=== PATIENT | female | born 1960 | race Caucasian/White ===

== ENCOUNTER → 2017-09-13 12:00 | Outpatient (CLI) | payer OTHER, SELFPAY ==
[2017-09-13 13:12] LABS: Absolute Neutrophil Count 4.4 X10^3/uL (2.0-7.7); Basophil# 0.05 X10^3/uL; Basophil% 0.6 % (0-1); Eosinophil# 0.28 X10^3/uL; Eosinophils% 3.2 % (0-5); Hematocrit 41.1 % (37-47); Hemoglobin 13.7 g/dl (12.0-15.0); Lymphocyte % 36.7 % (19-41); Mean Corp Hgb Conc 33.3 g/gl (32-36); Mean Corpuscular Hgb 30.9 pg (27.0-32.0); Mean Corpuscular Volume 92.8 fL (81-99); Mean Platelet Vol. 11.1 fl (6.2-12.0); Monocyte# 0.76 X10^3/uL; Monocyte% 8.7 % (0-10); Neutrophil # 4.39 X10^3/uL (2.7-7.7); Neutrophil % 50.3 % (47-70); Platelet Count 343 K/mm3 (150-450); RBC Distribution Width CV 12.8 % (11.6-14.6); RBC Distribution Width SD 42.8 fl (35.1-43.9); Red Blood Count 4.43 M/mm3 (4.2-5.4); White Blood Count 8.7 K/mm3 (4.4-11.0)
[2017-09-13 13:19] LABS: POSITIVE COUNT NO; POSITIVE DIFFERENTIAL NO; POSITIVE MORPHOLOGY NO
[2017-09-13 13:50] LABS: AST(SGOT) 29 U/L (15-37); Alanine Aminotransfer ALT/SGPT 35 U/L (13-56); Albumin, Serum 3.9 g/dL (3.2-5.0); Alkaline Phosphatase 79 U/L (45-117); Anion Gap 9 (5-15); BUN 17 mg/dL (7-18); BUN/Creat Ratio 17.7 RATIO (10-20); Calcium,Total 9.3 mg/dL (8.5-10.1); Chloride 101 mmol/L (98-107); Creatinine, Serum 0.96 mg/dL (0.55-1.02); EST Glomerular Filtration Rate 63 mL/min (>60); Est Glom Filt Rate - Afr Amer 77 mL/min (>60); Globulin 4.1 g/dL (2.2-4.2); Glucose 83 mg/dL (74-106); Potassium 3.9 mmol/L (3.5-5.1); Sodium Level 137 mmol/L (136-145); Thyroid Stim Hormone (TSH) 3.21 uIU/mL (0.358-3.74)
[2017-09-14 10:19] LABS: Vitamin D,25 Hydroxy 62.2 ng/mL (29.95-100.01)
== END ==
PROVIDERS: Visit Provider Family Medicine Geriatric Medicine
DX: I10 Essential (primary) hypertension (principal); E55.9 Vitamin D deficiency, unspecified
CPT/HCPCS: 36415; 80053; 82306; 84443; 85025

== ENCOUNTER → 2018-03-19 11:03 | Outpatient (CLI) | payer OTHER, SELFPAY ==
[2018-03-19 12:36] LABS: Absolute Lymphocyte Count 1.81 X10^3/ul (0.83-4.51); Absolute Neutrophil Count 5.4 X10^3/uL (2.0-7.7); Basophil# 0.05 X10^3/uL; Basophil% 0.6 % (0-1); Eosinophil# 0.22 X10^3/uL; Eosinophils% 2.7 % (0-5); Hematocrit 42.3 % (37-47); Hemoglobin 14.1 g/dl (12.0-15.0); Lymphocyte # 1.81 X10^3/ul (4.0); Lymphocyte % 22.6 % (19-41); Mean Corp Hgb Conc 33.3 g/gl (32-36); Mean Corpuscular Hgb 30.9 pg (27.0-32.0); Mean Corpuscular Volume 92.6 fL (81-99); Mean Platelet Vol. 11.6 fl (6.2-12.0); Monocyte# 0.55 X10^3/uL; Monocyte% 6.9 % (0-10); Neutrophil # 5.35 X10^3/uL (2.7-7.7); Neutrophil % 66.7 % (47-70); Platelet Count 337 K/mm3 (150-450); RBC Distribution Width CV 13.2 % (11.6-14.6); RBC Distribution Width SD 43.7 fl (35.1-43.9); Red Blood Count 4.57 M/mm3 (4.2-5.4)
[2018-03-19 12:40] LABS: POSITIVE COUNT NO; POSITIVE DIFFERENTIAL NO; POSITIVE MORPHOLOGY NO
[2018-03-19 13:02] LABS: ALB/GLOB Ratio 0.9 RATIO (0.9-2.4); AST(SGOT) 23 U/L (15-37); Alanine Aminotransfer ALT/SGPT 29 U/L (13-56); Albumin, Serum 3.8 g/dL (3.2-5.0); Alkaline Phosphatase 82 U/L (45-117); Anion Gap 12 (5-15); BUN 19 mg/dL (7-18); BUN/Creat Ratio 16.1 RATIO (10-20); Calcium,Total 9.3 mg/dL (8.5-10.1); Chloride 103 mmol/L (98-107); Creatinine, Serum 1.18 mg/dL (0.55-1.02); EST Glomerular Filtration Rate 50 mL/min (>60); Est Glom Filt Rate - Afr Amer 60 mL/min (>60); Globulin 4.4 g/dL (2.2-4.2); Glucose 98 mg/dL (74-106); Potassium 4.3 mmol/L (3.5-5.1); Protein, Total 8.2 g/dL (6.4-8.2); Sodium Level 139 mmol/L (136-145); Thyroid Stim Hormone (TSH) 1.84 uIU/mL (0.358-3.74)
[2018-03-20 11:25] LABS: Hep C Antibodies <0.1 s/co ratio (0.0-0.9)
== END ==
PROVIDERS: Visit Provider Family Medicine Geriatric Medicine
DX: I10 Essential (primary) hypertension (principal); Z13.89 Encounter for screening for other disorder
CPT/HCPCS: 36415; 80053; 84443; 85025; 86803

== ENCOUNTER → 2018-07-23 12:24 | Outpatient (CLI) | payer OTHER, SELFPAY ==
[2018-07-23 09:46] VITALS: BMI 38.4
[2018-07-26 09:50] LABS: HPV APTIMA, High Risk Negative (Negative)
--- OUTSIDE RECORDS SUMMARY | 2018-09-24 16:14 | XMS RPT_ITS ---
:1960 Author Organization OHIP Care Team Providers Name Role Phone Suzy Waldron Attending Unavailable Marquis, Girish Chi Referring Unavailable Suzy Waldron Attending Unavailable Suzy Waldron Referring Unavailable Marquis, Girish Chi Primary Care Unavailable Suzy Waldron Attending Unavailable Suzy Waldron Referring Unavailable Marquis, Girish Chi Primary Care Unavailable Marquis, Girish Chi Attending Unavailable Marquis, Girish Chi Attending Unavailable PROBLEMS PROBLEMS DATE TYPE CONDITION / CODE ATTENDING STATUS SOURCE 07/23/2018 Unknown Z12.4 - Encounter Vanita, Active [place] for screening for [facility] malignant neoplasm Hospital of cervix / Repository Z12.4(ICD-10) 07/23/2018 Unknown Z01.411 - Encounter Vanita, Active [place] for gynecological [facility] (general) (routine) Repository with abnormal findings / Z01.411(ICD-10) 07/23/2018 Unknown N39.46 - Mixed Marcanthony, Active [place] incontinence / [facility] N39.46(ICD-10) Hospital Repository 07/23/2018 Unknown N81.2 - Incomplete Marcanthony, Active [place] uterovaginal [facility] prolapse / Hospital N81.2(ICD-10) Repository 07/23/2018 Unknown N95.0 - Marcanthony, Active [place] Postmenopausal [facility] bleeding / Hospital N95.0(ICD-10) Repository 05/14/2018 Unknown I10 - Essential Marquis, Girish Chi Active [place] (primary) [facility] hypertension / Hospital I10(ICD-10) Repository PROCEDURES PROCEDURES No Procedure Records FoundRESULTS RESULTS PELVIC (NON ) Observed: 07/26/2018 Status: F Source: [place] 2:12 PM [facility] REPOSITORY [facility] Imaging Services [address] [place] [address] Pelvic (Non ) MR#: [id number] Acct: [id number] Name: EDU MARRERO MIN Rep #: [id number] : 1960 F 58 From: Arthur Valentin MD PCP: Girish Salguero MD, Chi Status: REG CLI Study: Pelvic (Non ) Date of Exam: 07/26/18 Exam# [id number] Ordering Dr: Suzy Waldron MD STUDY: ULTRASOUND TRANSVAGINAL CLINICAL: Female, 58 years old. Postmenopausal bleeding TECHNIQUE: Transabdominal imaging initially performed with subsequent endovaginal imaging due to poor visualization of the endometrial complex. COMPARISON: None. FINDINGS: Normal uterine size measuring 10.0 x 4.5 x 4.9 cm in maximal craniocaudal dimension. There are no myometrial masses. Normal endometrial thickness measuring 16.4 mm. Margins of the endometrial complex are ill-defined. There are no endometrial masses, and there is no fluid in the endometrial cavity. Nabothian cysts are noted. Normal right ovary, measuring 2.1 x 2.1 x 0.8 cm. There are multiple follicles without a dominant cyst. Normal left ovary, measuring 2.0 x 2.1 x 1.1 cm. There are multiple follicles without a dominant cyst. There is no free fluid in the pelvis. Visualized urinary bladder is unremarkable. US/Pelvic (Non ) IMPRESSION: 1. Endometrial complex thickening in a postmenopausal female with bleeding. Endometrial hyperplasia versus neoplasm. Sampling is recommended. Electronically Signed: Arthur Valentin MD at 22:16 EST , Service support , CC: Suzy Waldron MD; Girish Salguero MD Gas Maker Helper: Signed TRANSVAGINAL Observed: 07/26/2018 Status: F Source: [place] NON- 2:12 PM [facility] REPOSITORY [facility] Imaging Services [address] [place] [address] Transvaginal Non- MR#: [id number] Acct: [id number] Name: EDU MARRERO MIN Rep #: [id number] : 1960 F 58 From: Arthur Valentin MD PCP: Girish Salguero MD, Chi Status: REG CLI Study: Transvaginal Non- Date of Exam: 07/26/18 Exam# [id number] Ordering Dr: Suzy Waldron MD STUDY: ULTRASOUND TRANSVAGINAL CLINICAL: Female, 58 years old. Postmenopausal bleeding TECHNIQUE: Transabdominal imaging initially performed with subsequent endovaginal imaging due to poor visualization of the endometrial complex. COMPARISON: None. FINDINGS: Normal uterine size measuring 10.0 x 4.5 x 4.9 cm in maximal craniocaudal dimension. There are no myometrial masses. Normal endometrial thickness measuring 16.4 mm. Margins of the endometrial complex are ill-defined. There are no endometrial masses, and there is no fluid in the endometrial cavity. Nabothian cysts are noted. Normal right ovary, measuring 2.1 x 2.1 x 0.8 cm. There are multiple follicles without a dominant cyst. Normal left ovary, measuring 2.0 x 2.1 x 1.1 cm. There are multiple follicles without a dominant cyst. There is no free fluid in the pelvis. Visualized urinary bladder is unremarkable. US/Transvaginal Non- IMPRESSION: 1. Endometrial complex thickening in a postmenopausal female with bleeding. Endometrial hyperplasia versus neoplasm. Sampling is recommended. Electronically Signed: Arthur Valentin MD at 22:16 EST , Service support , CC: Suzy Waldron MD; Girish Salguero MD Gas Maker Helper: Signed ELECTROTYPE CASTER OFFICE VISIT Observed: 07/23/2018 Status: F Source: [place] REPORT 10:30 AM [facility] REPOSITORY [facility] [address] [place] [address]. 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 Required: No Is patient in pain?: No Allergies No Known Allergies Allergy (Unverified 07/23/18 09:47) Medications lisinopril 10 mg tablet 10 mg PO DAILY 07/23/18 [History Confirmed 07/23/18] Is last menstrual period known: No Post menopausal: Yes Patient : No : No PFSH Medical History Anxiety (Acute) Depression (Acute) Hyperlipidemia (Acute) Hypertension (Chronic) Surgical History H/O tubal ligation (Acute) H/O: knee surgery (Acute) History of tonsillectomy (Acute) Family History Mother Diabetes Congestive heart failure Daughter Diabetes Father CVA (cerebral vascular accident) Myocardial infarction Social History Smoking Status: Never smoker alcohol intake: never substance use type: does not use caffeine: Yes what type of physical activity do you participate in: walking seatbelt use: always do you feel safe at home: Yes additional social history: Darryl- 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 DateName GA/Weeks Outcome Route Bt WeighInfant GeLabor LgtAnesthesiDel LocatProvider FOB t n h a n HPI Encounter for routine gynecological examination: Details: EDU MARRERO is a 58 year old who presents for annual exam. she has had some pink discharge. Last PAP: unsure History of abnormal PAP: yes cryo in past Last mammogram: due History of abnormal mammogram: Colon cancer screening: u ptod ate Other preventative health care screenings: sees dr salguero Female Reproductive History Questions: Metorrhagia: Yes, Sexually active: Yes, Dyspareunia: Yes, PCB: No ROS Const Constitutional: Reports as per HPI; denies poor appetite, fatigue, increased appetite, weight gain or weight loss Cardio Card: Denies chest pain Resp Resp: Denies dyspnea or cough GI GI: Reports as per HPI; denies bloating, abdominal pain, constipation, vomiting or nausea : Reports as per HPI, vaginal odor, urinary urgency, urinary incontinence, urinary frequency, other and prolapse symptoms; denies blood in urine, vaginal itching, vaginal dryness, vaginal discharge, pelvic pain, painful urination, difficulty urinating or nipple discharge Skin Skin/Breast: Denies breast pain, breast skin changes, nipple discharge, breast lump or changing lesions Exam Const General: cooperative, healthy appearing, comfortable, no acute distress, well developed, well groomed HENMT Head: normal to inspection, normocephalic Ears: hearing grossly normal bilaterally, external ears normal Nose: external nose normal Face and sinus: normal facial exam Neck Neck: normal visual inspection, full ROM, no lymphadenopathy Thyroid: thyroid normal Chest Chest palpation AND inspection: normal inspection of the chest Breast inspection: normal inspection of the breasts, normal inspection of the axillae Breast palpation: normal palpation of the breasts, normal palpation of the axillae, no axillary lymphadenopathy Resp Effort AND Inspection: normal respiratory effort GI Inspection: normal to inspection, non-distended Palpation: no guarding, soft, no hepatosplenomegaly General: bladder normal to palpation External Female Exam: normal external appearance, normal appearance of the urethra, no lesions Urethra: normal appearance of the urethra, normal palpation Speculum Exam - Vagina: normal appearance of the vagina, normal vaginal discharge Speculum Exam - Cervix: normal appearance of the cervix, no cervical discharge, no lesions, nontender Bimanual Exam- Vagina AND Uterus: No cervical tenderness, normal bimanual exam, uterine size normal, bladder normal to palpation, uterine mobility normal, uterine consistency normal, uterus non-tender, no cervical motion tenderness Bimanual Exam- Adnexa, other: normal adnexae, no adnexal masses, adnexae non-tender Skin General: no rashes or lesions noted Neuro General: alert, moves all extremities, no focal motor deficits Extrem General: no pedal edema, normal to inspection Psych Appearance: grossly normal Mental Status: mental status grossly normal Affect: normal affect Speech and Movement: speech and movement normal Attitude: cooperative Assessment AND Plan Problems 1. Encounter for gynecological examination with abnormal finding Z01.411 2. Mixed incontinence N39.46 3. Incomplete uterovaginal prolapse N81.2 4. Postmenopausal bleeding N95.0 recommend US Plan Cervical cancer screening: pap hpv Breast cancer screening: mamm recommend urogyn consult- plan TVH BSO combo case other health maintenance examination reviewed and orders placed if needed. Encouraged maintenance of a healthy weight and active lifestyle and handout given. Annual exam handout including recommendations for good health guidelines, Calcium/vitamin D recommendations, and basic screening information given. Problem list up to date, see problem list details for any additional plan information. Follow up in one year for annual health maintenance exam or sooner if needed. Orders Orders: Coding Level of Care Code Off vis,new,prev 40-64yrs Diagnoses Encounter for gynecological examination with abnormal finding Z01.411 Gynecological examination findings: abnormal findings PRESENT Mixed incontinence N39.46 Incomplete uterovaginal prolapse N81.2 Postmenopausal bleeding N95.0 07/23/18 1030 <Electronically signed by Suzy Waldron MD> Date Suzy Waldron MD Cosigner Signature: Date (if applicable) CC: PAP IG HPV APTIMA Collected: 07/23/2018 Status: F Source: [place] 16/18,45 10:00 AM [facility] REPOSITORY Order Comment: CYTOLOGY INFORMATION: - CLINICAL INFORMATION: - DATE LMP/MENOPAUSE: - COLLECTION VIAL: Thin Prep Vial - CATERING MANAGER SOURCE: CERVICAL - COLLECTION TECHNIQUE: BRUSH/SPATULA Specimen Comment: [id number] Specimen Comment: Source.............Cervix Specimen Comment: No. of containers..01 ThinPrep Vial TYPE CODE TESTS RESULT OUT OF RANGE REFERENCE UNITS LAB L7400.0800 . Normal DIAGN Comment Result Comment: NEGATIVE FOR INTRAEPITHELIAL LESION OR MALIGNANCY. LAB L7400.0900 . Normal ADEQ Comment Result Comment: Satisfactory for evaluation. Endocervical and/or squamous metaplastic cells (endocervical component) are present. LAB L7400.1400 . Normal PERFORM Comment Result Comment: Sheron Duarte, Cms Expert (ASCP) LAB L7400.2575 . Normal TEST METHOD Comment Result Comment: This liquid based ThinPrep(R) pap test was screened with the use of an image guided system. LAB L7400.2600 . Normal . COMM LAB L7400.2700 . Normal PAPSMR Comment Result Comment: The Pap smear is a screening test designed to aid in the detection of premalignant and malignant conditions of the uterine cervix. It is not a diagnostic procedure and should not be used as the sole means of detecting cervical cancer. Both false-positive and false-negative reports do occur. LAB L7400.2760 Negative Normal HPV APTIMA, Negative HR Result Comment: This test detects fourteen high-risk HPV types (16/18/31/33/35/39/45/ 51/52/56/58/59/66/68) without differentiation. Performed at: [facility] - [facility] [address] [id number] Therapeutic Consultant: Mary Wiley MD, Phone: [phone] Performed at: =G - [facility] [address], [place] [id number] Therapeutic Consultant: Mary Wiley MD, Phone: [phone] Performed By: #### L7400.0280 #### [facility] (refer to report for specific site) refer to report for address and phone number CBC W/DIFF, AUTOMATED Collected: 03/19/2018 Status: F Source: [place] 11:04 AM [facility] REPOSITORY TYPE CODE TESTS RESULT OUT OF RANGE REFERENCE UNITS LAB L100.1000 4.4-11.0 K/mm3 Normal WBC 8.0 LAB L100.1200 4.2-5.4 M/mm3 Normal RBC 4.57 LAB L100.1300 12.0-15.0 g/dl Normal HGB 14.1 LAB L100.1400 37-47 % Normal HCT 42.3 LAB L100.1500 81-99 fL Normal MCV 92.6 LAB L100.1600 27.0-32.0 pg Normal MCH 30.9 LAB L100.1700 32-36 g/gl Normal MCHC 33.3 LAB L100.1810 11.6-14.6 % Normal RDW CV 13.2 LAB L100.1820 35.1-43.9 fl Normal RDW SD 43.7 LAB L100.1900 150-450 K/mm3 Normal PLT 337 LAB L100.2000 6.2-12.0 fl Normal MPV 11.6 LAB L100.2100 47-70 % Normal NEUT% 66.7 LAB L100.2200 19-41 % Normal LY% 22.6 LAB L100.2300 0-10 % Normal MONO% 6.9 LAB L100.2400 0-5 % Normal EO% 2.7 LAB L100.2500 0-1 % Normal BASO% 0.6 LAB L100.2550 0.0-0.9 % Normal IM GRAN % 0.500 Result Comment: IG% - Immature Granulocytes (promyelocytes, myelocytes and metamyelocytes) > 1% indicates that a LEFT SHIFT is Present. LAB L100.2620 2.0-7.7 X10 3/uL Normal Absolute Neut 5.4 LAB L100.2720 0.83-4.51 X10 3/ul Normal Absolute Lymph 1.81 Performed By: #### L100.0100 #### [facility] [address] [place], [address] COMPREHENSIVE METABOLIC Collected: 03/19/2018 Status: F Source: [facility] 11:04 AM [facility] REPOSITORY TYPE CODE TESTS RESULT OUT OF RANGE REFERENCE UNITS LAB L501.0100 74-106 mg/dL Normal GLU 98 Result Comment: Please note revised GLUCOSE reference range effective 2017. LAB L501.1000 7-18 mg/dL High BUN 19 LAB L501.1100 0.55-1.02 mg/dL High CREAT,SERUM 1.18 Result Comment: The validity of the calculated GFR AND GFRAA in patients over 70 years has not been determined. Clinical correlation is essential. LAB L501.1110 >60 mL/min Low EST GFR 50 Result Comment: Non- GFR Calc LAB L501.1115 >60 mL/min Normal EST GFR - AA 60 Result Comment: GFR Calc LAB L501.1300 10-20 RATIO Normal BUN/CRE 16.1 LAB L501.1500 6.4-8.2 g/dL T Normal PROT 8.2 LAB L501.1800 3.2-5.0 g/dL Normal ALB 3.8 LAB L501.1950 2.2-4.2 g/dL High GLOB 4.4 LAB L501.2000 0.9-2.4 RATIO Normal A/G 0.9 LAB L501.2200 8.5-10.1 mg/dL CA Normal 9.3 LAB L501.4100 15-37 U/L Normal AST 23 LAB L501.4305 45-117 U/L Normal ALK P 82 LAB L501.4405 13-56 U/L Normal ALT 29 LAB L501.4600 0.20-1.00 mg/dL T Normal BILI 0.60 LAB L501.5300 136-145 mmol/L NA Normal 139 LAB L501.5600 3.5-5.1 mmol/L K Normal 4.3 LAB L501.5900 98-107 mmol/L CL Normal 103 LAB L501.6100 21.0-32.0 mmol/L Normal CO2 24.0 LAB L501.6200 5-15 Normal GAP 12 Performed By: #### L500.4050, L501.9520 #### [facility] [address] [place], [address] THYROID STIM HORMONE Collected: 03/19/2018 Status: F Source: [place] (TSH) 11:04 AM [facility] REPOSITORY TYPE CODE TESTS RESULT OUT OF RANGE REFERENCE UNITS LAB L501.9520 0.358-3.74 uIU/mL Normal TSH 1.84 Performed By: #### L500.4050, L501.9520 #### [facility] [address] [place], [address] HEPATITIS C ANTIBODIES Collected: 03/19/2018 Status: F Source: [place] 11:04 AM [facility] REPOSITORY TYPE CODE TESTS RESULT OUT OF RANGE REFERENCE UNITS LAB L3100.0650 0.0-0.9 s/co ratio Normal HEP C AB <0.1 Result Comment: Negative: < 0.8 Indeterminate: 0.8 - 0.9 Positive: > 0.9 The CDC recommends that a positive HCV antibody result be followed up with a HCV Nucleic Acid Amplification test ([id number]). Performed at: [facility] [id number] Therapeutic Consultant: Nino Hernandez PhD, Phone: [phone] Performed By: #### L3100.0625 #### [facility] (refer to report for specific site) refer to report for address and phone number VITAMIN D,25 HYDROXY Collected: 09/13/2017 Status: F Source: [place] 12:16 PM [facility] REPOSITORY Order Comment: DR SALGUERO ADDED VITD TYPE CODE TESTS RESULT OUT OF RANGE REFERENCE UNITS LAB L506.1000 29.95-100.01 ng/mL Normal Vitamin D 62.2 25-OH Result Comment: Vitamin D 25(OH) Status Range Deficiency <20 ng/mL (50nmol/L) Insuffciency 20 - 30 ng/mL (50 - 75 nmol/L) Sufficiency 30 - 100 ng/mL (75 - 250 nmol/L) Toxicity >100 ng/mL (>250 nmol/L) Performed By: #### L506.1000 #### [facility] [address] [place], [address] CBC W/DIFF, AUTOMATED Collected: 09/13/2017 Status: F Source: [place] 12:03 PM [facility] REPOSITORY TYPE CODE TESTS RESULT OUT OF RANGE REFERENCE UNITS LAB L100.1000 4.4-11.0 K/mm3 Normal WBC 8.7 LAB L100.1200 4.2-5.4 M/mm3 Normal RBC 4.43 LAB L100.1300 12.0-15.0 g/dl Normal HGB 13.7 LAB L100.1400 37-47 % Normal HCT 41.1 LAB L100.1500 81-99 fL Normal MCV 92.8 LAB L100.1600 27.0-32.0 pg Normal MCH 30.9 LAB L100.1700 32-36 g/gl Normal MCHC 33.3 LAB L100.1810 11.6-14.6 % Normal RDW CV 12.8 LAB L100.1820 35.1-43.9 fl Normal RDW SD 42.8 LAB L100.1900 150-450 K/mm3 Normal PLT 343 LAB L100.2000 6.2-12.0 fl Normal MPV 11.1 LAB L100.2100 47-70 % Normal NEUT% 50.3 LAB L100.2200 19-41 % Normal LY% 36.7 LAB L100.2300 0-10 % Normal MONO% 8.7 LAB L100.2400 0-5 % Normal EO% 3.2 LAB L100.2500 0-1 % Normal BASO% 0.6 LAB L100.2550 0.0-0.9 % Normal IM GRAN % 0.500 Result Comment: IG% - Immature Granulocytes (promyelocytes, myelocytes and metamyelocytes) > 1% indicates that a LEFT SHIFT is Present. LAB L100.2620 2.0-7.7 X10 3/uL Normal Absolute Neut 4.4 LAB L100.2720 0.83-4.51 X10 3/ul Normal Absolute Lymph 3.20 Performed By: #### L100.0100 #### [facility] [place], [address] COMPREHENSIVE METABOLIC Collected: 09/13/2017 Status: F Source: [place] [facility] 12:03 PM [facility] REPOSITORY TYPE CODE TESTS RESULT OUT OF RANGE REFERENCE UNITS LAB L501.0100 74-106 mg/dL Normal GLU 83 Result Comment: Please note revised GLUCOSE reference range effective 2017. LAB L501.1000 7-18 mg/dL Normal BUN 17 LAB L501.1100 0.55-1.02 mg/dL Normal CREAT,SERUM 0.96 Result Comment: The validity of the calculated GFR AND GFRAA in patients over 70 years has not been determined. Clinical correlation is essential. LAB L501.1110 >60 mL/min Normal EST GFR 63 Result Comment: Non- GFR Calc LAB L501.1115 >60 mL/min Normal EST GFR - AA 77 Result Comment: GFR Calc LAB L501.1300 10-20 RATIO Normal BUN/CRE 17.7 LAB L501.1500 6.4-8.2 g/dL T Normal PROT 8.0 LAB L501.1800 3.2-5.0 g/dL Normal ALB 3.9 LAB L501.1950 2.2-4.2 g/dL Normal GLOB 4.1 LAB L501.2000 0.9-2.4 RATIO Normal A/G 1.0 LAB L501.2200 8.5-10.1 mg/dL CA Normal 9.3 LAB L501.4100 15-37 U/L Normal AST 29 LAB L501.4305 45-117 U/L Normal ALK P 79 LAB L501.4405 13-56 U/L Normal ALT 35 Result Comment: Please note revised ALT reference range effective 2017. LAB L501.4600 0.20-1.00 mg/dL Normal T BILI 0.30 LAB L501.5300 136-145 mmol/L Normal NA 137 LAB L501.5600 3.5-5.1 mmol/L Normal K 3.9 LAB L501.5900 98-107 mmol/L Normal CL 101 LAB L501.6100 21.0-32.0 mmol/L Normal CO2 27.0 LAB L501.6200 5-15 Normal GAP 9 Performed By: #### L500.4050, L501.9520 #### [facility] [address] [place], [address] THYROID STIM HORMONE Collected: 09/13/2017 Status: F Source: [place] (TSH) 12:03 PM [facility] REPOSITORY TYPE CODE TESTS RESULT OUT OF RANGE REFERENCE UNITS LAB L501.9520 0.358-3.74 uIU/mL Normal TSH 3.21 Performed By: #### L500.4050, L501.9520 #### [facility] [address] [place], [address] ALLERGIES ALLERGIES DATE TYPE / CODE NAME / CODE REACTION SEVERITY SOURCE 07/23/2018 Drug No Known Unknown [facility] Allergy/4160 Allergies/F00 Hospital 68770(SNOMED [id number](RXNOR Repository CT) M) ENCOUNTERS ENCOUNTERS ADMIT/DISCHARGE ACCOUNT ADMITTING ENCOUNTER LOCATION SOURCE NUMBER CLASS 07/26/2018 [id number] Ambulatory [place] 3 [facility] ing:US Repository 07/23/2018 [id number] Ambulatory [place] 1 [facility] ing:LABSPEC Repository 07/23/2018/ [id number] Ambulatory BMSBuilding:B [place] 9 7 [facility] Repository 03/19/2018 [id number] Ambulatory [place] 8 [facility] ing:POLAB3 Repository 09/13/2017 [id number] Ambulatory [place] 5 [facility] ing:POLAB3 Repository PAYERS PAYERS ENCOUNTER GUARANTOR PAYER SUBSCRIBER SOURCE 07/26/2018 EDU Ferrer [place] [id number] Insurance:GIANNA DeleonOB: [facility] [id number] Number: Repository [id number]: (001) [id number] [phone] () Date:[id number] [address]SM: 07/26/2018 Secondary NOT GIVENUNK [place] Insurance:SELF PAY [facility] Number: Effective Repository Date:2018-07-23 07/23/2018 EDU Andrews N [place] [id number] Insurance:PHILIDELPHI CleaverDOB: [facility] [id number] Number: Repository [address]Zdr: 330 [id number] [phone] (HP) Date:7075-70-40BT [address] [address]NN: 07/23/2018 Secondary NOT GIVENUNK [place] Insurance:SELF PAY [facility] Number: Effective Repository Date:2018-07-23 07/23/2018 EDU Andrews N [place] [id number] Insurance:PHILIDELPHI CleaverDOB: [facility] [id number] Number: Repository [address]Yhb: [phone] [id number] [phone] () Date:2829-72-52ZX [address] [address]FS: 07/23/2018 Secondary NOT GIVENUNK [place] Insurance:SELF PAY [facility] Number: Effective Repository Date:2018-07-23 03/19/2018 EDU Ferrer [place] [id number] Insurance:PHILADELPHI CleaverDOB: [facility] [id number] Number: Repository [id number]: [phone] [id number] [phone] (HP) Date:3440-08-55CT [address] [address]CH: 03/19/2018 Secondary NOT GIVENUNK [place] Insurance:SELF PAY [facility] Number: Effective Repository Date:2018-03-19 09/13/2017 EDU Andrews N [place] [id number] Insurance:PHILADELPHI CleaverDOB: [facility] [id number] Number: Repository [id number]: [phone]) [id number] [phone] () Date:[id number] [address]KN: 09/13/2017 Secondary NOT GIVENUNK [place] Insurance:SELF PAY [facility] Number: Effective Repository Date:2017-09-13
== END ==
PROVIDERS: Family Provider Family Medicine Geriatric Medicine; PCP Family Medicine Geriatric Medicine; Referring Provider Obstetrics & Gynecology; Visit Provider Obstetrics & Gynecology
DX: Z12.4 Encounter for screening for malignant neoplasm of cervix (principal)
CPT/HCPCS: 87624; 88175; G0145

== ENCOUNTER → 2018-07-26 14:07 | Outpatient (CLI) | payer OTHER, SELFPAY ==
[2018-07-23 09:46] VITALS: BMI 38.4
--- NOTE | 2018-07-26 14:12 | US_ITS ---
STUDY: ULTRASOUND TRANSVAGINAL CLINICAL: Female, 58 years old. Postmenopausal bleeding TECHNIQUE: Transabdominal imaging initially performed with subsequent endovaginal imaging due to poor visualization of the endometrial complex. COMPARISON: None. FINDINGS: Normal uterine size measuring 10.0 x 4.5 x 4.9 cm in maximal craniocaudal dimension. There are no myometrial masses. Normal endometrial thickness measuring 16.4 mm. Margins of the endometrial complex are ill-defined. There are no endometrial masses, and there is no fluid in the endometrial cavity. Nabothian cysts are noted. Normal right ovary, measuring 2.1 x 2.1 x 0.8 cm. There are multiple follicles without a dominant cyst. Normal left ovary, measuring 2.0 x 2.1 x 1.1 cm. There are multiple follicles without a dominant cyst. There is no free fluid in the pelvis. Visualized urinary bladder is unremarkable. US/Transvaginal Non- IMPRESSION: 1. Endometrial complex thickening in a postmenopausal female with bleeding. Endometrial hyperplasia versus neoplasm. Sampling is recommended. Electronically Signed: Arthur Valentin MD at 22:16 EST , Service support ,
--- NOTE | 2018-07-26 14:12 | US_ITS ---
STUDY: ULTRASOUND TRANSVAGINAL CLINICAL: Female, 58 years old. Postmenopausal bleeding TECHNIQUE: Transabdominal imaging initially performed with subsequent endovaginal imaging due to poor visualization of the endometrial complex. COMPARISON: None. FINDINGS: Normal uterine size measuring 10.0 x 4.5 x 4.9 cm in maximal craniocaudal dimension. There are no myometrial masses. Normal endometrial thickness measuring 16.4 mm. Margins of the endometrial complex are ill-defined. There are no endometrial masses, and there is no fluid in the endometrial cavity. Nabothian cysts are noted. Normal right ovary, measuring 2.1 x 2.1 x 0.8 cm. There are multiple follicles without a dominant cyst. Normal left ovary, measuring 2.0 x 2.1 x 1.1 cm. There are multiple follicles without a dominant cyst. There is no free fluid in the pelvis. Visualized urinary bladder is unremarkable. US/Pelvic (Non ) IMPRESSION: 1. Endometrial complex thickening in a postmenopausal female with bleeding. Endometrial hyperplasia versus neoplasm. Sampling is recommended. Electronically Signed: Arthur Valentin MD at 22:16 EST , Service support ,
== END ==
LOC: US 14:10
PROVIDERS: Family Provider Family Medicine Geriatric Medicine; PCP Family Medicine Geriatric Medicine; Referring Provider Obstetrics & Gynecology; Visit Provider Obstetrics & Gynecology
DX: N95.0 Postmenopausal bleeding (principal)
CPT/HCPCS: 76830; 76856; 93976

== ENCOUNTER 2018-08-15 07:26 | Day surgery (SDC) | payer OTHER, SELFPAY ==
[2018-07-23 09:46] VITALS: BMI 38.4
--- NOTE | 2018-08-15 06:16 | PCM.HP.STD ---
Problem List (1) Incomplete uterovaginal prolapse Status: Acute (2) Mixed incontinence Status: Acute (3) Postmenopausal bleeding Status: Acute Comment: recommend US History of Present Illness Date of Admission: 08/15/18 Chief Complaint: postmenopausal bleeding The patient is a 58 year old F who presents for postmenopausal bleeding with thickened lining on ultrasound. Past Medical History Medical History: Medical History (Last Updated 07/23/18 @ 10:07 by Suzy Waldron MD) Anxiety F41.9 Depression F32.9 Hyperlipidemia E78.5 Hypertension I10 Allergies No Known Allergies Allergy (Verified 08/08/18 08:55) Home Medications: Ambulatory Orders Medication Instructions Recorded Cholecalciferol (Vitamin D3) 5,000 unit PO DAILY 08/08/18 [Vitamin D3] Lisinopril/Hydrochlorothiazide 1 each PO DAILY 08/08/18 [Lisinopril-Hctz 10-12.5 mg Tab] Naltrexone HCl/Bupropion HCl 1 each PO 4X/DAY 08/08/18 [Contrave ER 8-90 mg Tablet] Paroxetine [Paxil] 20 mg PO DAILY 08/08/18 Pravastatin [Pravachol] 40 mg PO QHS 08/08/18 Surgical History: Surgical History (Last Updated 07/23/18 @ 09:50 by Tram Small) H/O tubal ligation Z98.51 H/O: knee surgery Z98.890 History of tonsillectomy Z90.89 Smoking Status: Never smoker Review of Systems Constitutional: Denies: Fever, Malaise Eyes: Denies: Blurred vision, Vision Change HEENT: Denies: Head Aches, Visual Changes Cardiovascular: Denies: Chest Pain, Palpitations Respiratory: Denies: Cough, Shortness of Breath, Wheezing Gastrointestinal: Denies: Abdominal Pain, Diarrhea, Nausea, Vomiting Genitourinary: Denies: Dysuria, Hematuria Musculoskeletal: Denies: Joint Pain, Muscle pain Skin: Denies: Lesions, Rash Neurological: Denies: Blurred vision, Focal weakness, Headaches Psychiatric: Denies: Anxiety, Depression Endocrine: Denies: Heat/ Cold Intolerance Hematologic/ Lymphatic: Denies: Easy Bruising, Easy Bleeding VTE Information - Inpt Only VTE Present on Admission: No - Physical Exam General: Alert, Oriented x3 HEENT: Normocephalic Neck: Trachea Midline Lungs: Normal air movement Cardiovascular: Regular rate Abdomen: Soft, Non Tender Body Mass Index (BMI) 38.4 Assessment/Plan All Active Problems (Last Updated 07/23/18 @ 10:07 by Suzy Waldron MD) Mixed incontinence (Acute) Incomplete uterovaginal prolapse (Acute) Postmenopausal bleeding (Acute) 58 yo with postmenopausal bleeding plan d and c hysteroscopy symphion. discussed surgical risks including risks of anesthesia, infection, bleeding, injury to bowel, bladder or blood vessels, and patient wishes to proceed with surgery. UPDATE- I have seen the patient and performed any clinically relevant updates to the history and physical exam. Suzy Waldron MD
[2018-08-15 07:58] VITALS: BP 131/80; PULSE 72; RESP 16; TEMP 36.6; O2SAT 93; BMI 37.8
[2018-08-15 08:18] LABS: Hematocrit 43.5 % (37-47); Hemoglobin 13.9 g/dl (12.0-15.0); Mean Corpuscular Hgb 29.4 pg (27.0-32.0); Mean Corpuscular Volume 92.2 fL (81-99); Mean Platelet Vol. 10.8 fl (6.2-12.0); Platelet Count 323 K/mm3 (150-450); RBC Distribution Width CV 13.1 % (11.6-14.6); RBC Distribution Width SD 43.9 fl (35.1-43.9); Red Blood Count 4.72 M/mm3 (4.2-5.4); White Blood Count 6.9 K/mm3 (4.4-11.0)
[2018-08-15 08:19] LABS: Scan Indicated on CBC? Y/N NO
--- NOTE | 2018-08-15 09:00 | EMB_PTH ---
PATIENT: EDU MARRERO LOC: [facility] U#:[id number] AGE/SX: 58/F ROOM: RE08/15/[address]: Dr. Suzy Waldron MD : 1960 BED: DIS: 08/15/2018 SPEC #: [id number] RECD: 08/15/18 10:43 STATUS: STANTON DWAYNE #: [id number] MIKE: 08/15/18 09:[address]: Suzy Waldron DEPT: SURGICAL PATHOLOGY RECD BY: Graham Armijo ENTERED: 08/15/18 13:31 SP TYPE: ENDOM BX/C OTHR DR: Dr. Girish Cho MD Tissues: Endometrium, NOS Procedures: Surgery Specimen Level IV HEADER OPERATION: Hysteroscopy, D & C, Symphion PRE-OP DIAGNOSIS: Postmenopausal bleeding, mixed incontinence status, incomplete uterovaginal prolapse TISSUE SUBMITTED: Endometrial curettings and polyp MICROSCOPIC DIAGNOSIS Endometrial polyp and curettings: Polypoid fragments of endometrium with simple hyperplasia without atypia. Mild chronic endometritis. AM:marlena 08/16/18 MICROSCOPIC DESCRIPTION Slides are reviewed. GROSS DESCRIPTION Received in fixative is one container labeled with the patient's name and designated endometrial curettings and polyp. The specimen consists of multiple irregular fragments of olsen-pink soft tissue that in aggregate measure 5 x 3 x 0.6 cm. The entire specimen is submitted in four cassettes. / SJ:marlena 08/15/18 TC:1 CPT: 02912
--- NOTE | 2018-08-15 09:42 | PCM.OPRPT ---
Problem List (1) Incomplete uterovaginal prolapse Status: Acute (2) Mixed incontinence Status: Acute (3) Postmenopausal bleeding Status: Acute Comment: recommend US Report of Operation Date of Procedure: 08/15/18 Pre-Operative Diagnosis: pmb Post-Operative Diagnosis: same Surgery/Procedure Performed:: d and c hysteroscopic resection of polyp and direct d and c Description of Surgical Findings:: large endometrial polyp Type of Anesthesia:: Local MAC Special Medications: none Specimen's removed: emc polyp Drains: mares Estimated Blood Loss (mL): minimal Fluids Replaced: crystalloid Description of Procedure: Patient was prepped and draped in a normal sterile fashion under MAC anesthesia. A weighted speculum was placed in the vagina and the anterior lip of the cervix was grasped with a single-tooth tenaculum. A paracervical block was placed with 1% lidocaine. Cervix was progressively dilated to allow passage of a 5 mm hysteroscope. The lining was fully visualized and noted to have a large endometrial polyp filling the entire cavity was attached to the fundus. Uterine sounded to 10 cm. Using the symphion device, the polyp was progressively removed without complications. Direct visual curettage was performed using the device , and all specimens were sent to pathology. All instruments were removed from the vagina and excellent hemostasis was noted. Patient was awoken and taken to recovery in stable condition. Grafts/Implants Used: none - Complications none
[2018-08-15 09:43] VITALS: BP 120/73; BP 131/80; PULSE 59; RESP 16; TEMP 36.5; O2SAT 95
[2018-08-15 09:45] VITALS: BP 131/80; BP 139/86; PULSE 65; RESP 16; O2SAT 95
--- NOTE | 2018-08-15 09:46 | DCINST_ITS ---
Discharge Diet: No Restrictions Discharge Activity: Return to Normal Activity, May Shower, May Take a Tub Bath Allergies/Adverse Reactions: Allergies No Known Allergies Allergy (Verified 08/08/18 08:55) Medications to take at Discharge Cholecalciferol (Vitamin D3) [Vitamin D3] 5,000 unit PO DAILY 08/08/18 Lisinopril/Hydrochlorothiazide [Lisinopril-Hctz 10-12.5 mg Tab] 1 each PO DAILY 08/08/18 Naltrexone HCl/Bupropion HCl [Contrave ER 8-90 mg Tablet] 1 each PO 4X/DAY 08/08/18 Paroxetine [Paxil] 20 mg PO DAILY 08/08/18 Pravastatin [Pravachol] 40 mg PO QHS 08/08/18 Primary Care Physician: Girish Cho Chi, MD [Primary Care Provider] - Test Results: Test results from this visit will be discussed in further detail at your follow- up appointment, if applicable. Please Follow Up With: Suzy Waldron MD - [phone]
[2018-08-15 09:55] VITALS: BP 131/80; BP 134/73; PULSE 56; RESP 16; O2SAT 95
[2018-08-15 09:58] VITALS: BP 122/82; BP 131/80; PULSE 62; RESP 16; TEMP 36.7; O2SAT 94
[2018-08-15 10:32] VITALS: BP 131/80
== END 2018-08-15 10:41 | disposition home or self-care (01) ==
LOC: SDC 07:27 → AC 07:28
PROVIDERS: Family Provider Family Medicine Geriatric Medicine; PCP Family Medicine Geriatric Medicine; Referring Provider Obstetrics & Gynecology; Visit Provider Obstetrics & Gynecology
PROC: 0UB98ZZ Excision of Uterus, Via Natural or Artificial Opening Endoscopic (ICD-10-PCS; CPT 58558; principal; 2018-08-15 08:45)
DX: N84.0 Polyp of corpus uteri (principal); N85.01 Benign endometrial hyperplasia; N71.1 Chronic inflammatory disease of uterus; N95.0 Postmenopausal bleeding; N81.2 Incomplete uterovaginal prolapse; N39.46 Mixed incontinence; I10 Essential (primary) hypertension; E78.5 Hyperlipidemia, unspecified; F32.9 Major depressive disorder, single episode, unspecified; F41.9 Anxiety disorder, unspecified; Z79.899 Other long term (current) drug therapy
CPT/HCPCS: 58558; 36415; 85027; 86850; 86900; 88305; J7120; J2405

== ENCOUNTER → 2018-11-11 13:55 | Outpatient (CLI) | payer OTHER, SELFPAY ==
[2018-09-03 09:26] VITALS: BMI 37.8
[2018-11-11 14:57] LABS: Absolute Lymphocyte Count 3.06 X10^3/ul (0.83-4.51); Basophil# 0.08 X10^3/uL; Basophil% 0.8 % (0-1); Eosinophil# 0.65 X10^3/uL; Eosinophils% 6.2 % (0-5); Hematocrit 43.7 % (37-47); Hemoglobin 14.4 g/dl (12.0-15.0); Lymphocyte # 3.06 X10^3/ul (4.0); Mean Corpuscular Hgb 30.3 pg (27.0-32.0); Mean Corpuscular Volume 91.8 fL (81-99); Mean Platelet Vol. 11.1 fl (6.2-12.0); Monocyte# 0.73 X10^3/uL; Monocyte% 6.9 % (0-10); Neutrophil # 5.97 X10^3/uL (2.7-7.7); Neutrophil % 56.4 % (47-70); Platelet Count 363 K/mm3 (150-450); RBC Distribution Width CV 13.4 % (11.6-14.6); RBC Distribution Width SD 44.9 fl (35.1-43.9); Red Blood Count 4.76 M/mm3 (4.2-5.4); White Blood Count 10.6 K/mm3 (4.4-11.0)
[2018-11-11 14:58] LABS: POSITIVE COUNT NO; POSITIVE DIFFERENTIAL NO; POSITIVE MORPHOLOGY NO
[2018-11-11 15:16] LABS: ALB/GLOB Ratio 0.9 RATIO (0.9-2.4); AST(SGOT) 20 U/L (15-37); Alanine Aminotransfer ALT/SGPT 28 U/L (13-56); Albumin, Serum 3.7 g/dL (3.2-5.0); Alkaline Phosphatase 87 U/L (45-117); Anion Gap 6 (5-15); BUN 16 mg/dL (7-18); BUN/Creat Ratio 15.5 RATIO (10-20); Calcium,Total 8.8 mg/dL (8.5-10.1); Chloride 104 mmol/L (98-107); Creatinine, Serum 1.03 mg/dL (0.55-1.02); EST Glomerular Filtration Rate 58 mL/min (>60); Est Glom Filt Rate - Afr Amer 70 mL/min (>60); Globulin 4.1 g/dL (2.2-4.2); Glucose 132 mg/dL (74-106); Potassium 3.9 mmol/L (3.5-5.1); Protein, Total 7.8 g/dL (6.4-8.2); Sodium Level 136 mmol/L (136-145); Thyroid Stim Hormone (TSH) 3.69 uIU/mL (0.358-3.74)
== END ==
PROVIDERS: Family Provider Family Medicine Geriatric Medicine; PCP Family Medicine Geriatric Medicine; Visit Provider Family Medicine Geriatric Medicine
DX: I10 Essential (primary) hypertension (principal)
CPT/HCPCS: 36415; 80053; 84443; 85025

== ENCOUNTER → 2018-12-26 12:20 | Outpatient (CLI) | payer OTHER, SELFPAY ==
[2018-12-23 13:51] VITALS: BMI 37.8
[2018-12-26 13:01] LABS: Prothrombin Time (Protime)PT. 12.5 SECONDS (11.7-14.9)
[2018-12-26 13:02] LABS: Absolute Lymphocyte Count 3.44 X10^3/ul (0.83-4.51); Absolute Neutrophil Count 5.4 X10^3/uL (2.0-7.7); Basophil# 0.06 X10^3/uL; Basophil% 0.6 % (0-1); Eosinophil# 0.35 X10^3/uL; Eosinophils% 3.5 % (0-5); Hematocrit 41.9 % (37-47); Hemoglobin 13.9 g/dl (12.0-15.0); Lymphocyte # 3.44 X10^3/ul (4.0); Lymphocyte % 34.1 % (19-41); Mean Corp Hgb Conc 33.2 g/gl (32-36); Mean Corpuscular Hgb 30.3 pg (27.0-32.0); Mean Corpuscular Volume 91.5 fL (81-99); Mean Platelet Vol. 10.6 fl (6.2-12.0); Monocyte% 7.9 % (0-10); Neutrophil # 5.39 X10^3/uL (2.7-7.7); Neutrophil % 53.5 % (47-70); POSITIVE COUNT NO; POSITIVE DIFFERENTIAL NO; POSITIVE MORPHOLOGY NO; Platelet Count 320 K/mm3 (150-450); RBC Distribution Width CV 13.4 % (11.6-14.6); RBC Distribution Width SD 44.7 fl (35.1-43.9); Red Blood Count 4.58 M/mm3 (4.2-5.4); White Blood Count 10.1 K/mm3 (4.4-11.0)
[2018-12-26 13:09] LABS: Anion Gap 5 (5-15); BUN 15 mg/dL (7-18); Calcium,Total 9.5 mg/dL (8.5-10.1); Chloride 106 mmol/L (98-107); Creatinine, Serum 0.94 mg/dL (0.55-1.02); EST Glomerular Filtration Rate 64 mL/min (>60); Est Glom Filt Rate - Afr Amer 78 mL/min (>60); Glucose 78 mg/dL (74-106); Potassium 3.7 mmol/L (3.5-5.1); Sodium Level 137 mmol/L (136-145)
== END ==
PROVIDERS: Family Provider Family Medicine Geriatric Medicine; PCP Family Medicine Geriatric Medicine; Visit Provider Family Medicine Geriatric Medicine
DX: Z01.818 Encounter for other preprocedural examination (principal)
CPT/HCPCS: 36415; 80048; 85025; 85610

== ENCOUNTER 2019-01-09 05:38 | Day surgery (SDC) | payer OTHER, SELFPAY ==
[2018-09-03 09:26] VITALS: BMI 37.8
[2018-12-23 13:51] VITALS: BMI 37.8
--- NOTE | 2019-01-01 03:10 | HP.PCM_ITS ---
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 Is patient in pain?: No Allergies No Known Allergies Allergy (Verified 12/23/18 13:51) Medications Cholecalciferol (Vitamin D3) [Vitamin D3] 5,000 unit PO DAILY 08/08/18 [History Confirmed 12/23/18] Lisinopril/Hydrochlorothiazide [Lisinopril-Hctz 10-12.5 mg Tab] 1 ea PO DAILY 0 08/08/18 [History Confirmed 12/23/18] Naltrexone HCl/Bupropion HCl [Contrave ER 8-90 mg Tablet] 1 ea PO 4X/DAY 08/08/18 [History Confirmed 12/23/18] Paroxetine [Paxil] 20 mg PO DAILY 08/08/18 [History Confirmed 12/23/18] Pravastatin [Pravachol] 40 mg PO QHS 08/08/18 [History Confirmed 09/03/18] Is last menstrual period known: No Post menopausal: Yes Patient : No : No [facility] Medical History Anxiety (Acute) Depression (Acute) Hyperlipidemia (Acute) Hypertension (Chronic) Surgical History H/O tubal ligation (Acute) H/O: knee surgery (Acute) History of tonsillectomy (Acute) Family History Mother Diabetes Congestive heart failure Daughter Diabetes Father CVA (cerebral vascular accident) Myocardial infarction Social History (Updated 12/23/18 @ 14:03 by Suzy Waldron MD) Smoking Status: Never smoker alcohol intake: never substance use type: does not use caffeine: Yes what type of physical activity do you participate in: walking seatbelt use: always do you feel safe at home: Yes additional social history: Darryl- 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 she has pel crys organ prolapse and is going to have a combo case with urogyn for pelvic floor reconstruction. Pregancy History 6 Elective abortions Hx Para 6 Spontaneous abortions Hx # Term Pregnancies Ectopic pregnancies Hx # Pregnancies Multiple births # of living children Past Pregnancies Del. Date Name GA/Weeks Outcome Route Bth Weight Infant Gen Labor Lgth Anesthesia Del Locatn Provider FOB Unknown 1977 Prudence Unknown 1978 Jairo Unknown 1980 Ananda Unknown 1981 Shannon Unknown 1994 Sheron Unknown 1995 Antonio ROS Const Constitutional: Denies fatigue, fever(s), headache(s), increased appetite, poor appetite, weight gain or weight loss Cardio Card: Denies chest pain Resp Resp: Denies cough or dyspnea GI GI: Reports as per HPI; denies abdominal pain, constipation, nausea or vomiting : prolapse symptoms and urinary urgency frequency and loss of urine; Skin Skin/Breast: Denies change in hair, breast lump, breast pain, breast skin changes or nipple discharge Exam Const General: cooperative, healthy appearing, comfortable, no acute distress, well developed Nutritional Appearance: average body habitus Orientation: alert HENMT Head: normal to inspection, normocephalic Neck Neck: normal visual inspection, trachea midline Thyroid: thyroid normal Resp Effort & Inspection: normal respiratory effort CTAB, RRR GI Inspection: normal to inspection, non-distended Palpation: soft, no hepatosplenomegaly Skin General: no rashes or lesions noted Assessment & Plan Problems 1. Endometrial hyperplasia without atypia, simple N85.01 TVH BSO 2. Mixed incontinence N39.46 combo cases with Frankie 3. Incomplete uterovaginal prolapse N81.2 Plan discussed surgery- plan tvh bso combo case. discussed surgical risks including risks of anesthesia, infection, bleeding, injury to bowel, bladder or blood vessels, and patient wishes to proceed with surgery. Coding Level of Care Code No Charge Diagnoses Endometrial hyperplasia without atypia, simple N85.01 Mixed incontinence N39.46 Incomplete uterovaginal prolapse N81.2 UPDATE- I have seen the patient and performed any clinically relevant updates to the history and physical exam. Suzy Waldron MD
[2019-01-09] VITALS (14 sets, daily range): BP systolic 93–137; BP diastolic 51–73; PULSE 67–85; RESP 14–18; TEMP 36.2–36.8; O2SAT 94–100; BMI 39.2
[2019-01-09] MEDS: Enoxaparin 40 MG/0.4 ML Syringe SC (06:17)
[2019-01-09] MEDS: Gabapentin 600 MG Tablet PO (06:17)
[2019-01-09] MEDS: Acetaminophen 500 MG Tablet 1000 MG PO ×3 (06:18→18:21)
[2019-01-09] MEDS: Celecoxib 200 MG Capsule 400 MG PO (06:19)
[2019-01-09] MEDS: Magnesium Sulfate 4gm/100mL 4 GM/100 ML IV.SOLN. IV (06:34)
[2019-01-09 06:35] LABS: Bedside Glucose 179 mg/dL (70-110)
[2019-01-09] MEDS: Lactated Ringers 1,000 ML 70 ML IV ×3 (06:35→18:22)
[2019-01-09] MEDS: dexAMETHasone 10 MG/ML Vial 8 MG IV (06:35)
--- NOTE | 2019-01-09 07:30 | HYST_PTH ---
PATIENT: EDU MARRERO LOC: [facility] [place] U#:[id number] AGE/SX: 58/F ROOM: RE01/09/[address]: Dr. Suzy Waldron MD : [id number] BED: DIS: 01/10/2019 SPEC #: [id number] RECD: 01/09/19 12:56 STATUS: STANTON DWAYNE #: [id number] MIKE: 01/09/19 07:[address]: Suzy Waldron DEPT: SURGICAL PATHOLOGY RECD BY: Graham Armjio ENTERED: 01/09/19 13:41 SP TYPE: HYSTERECT OTHR DR: MD Dr. Girish Ames Chi, MD Tissues: Uterus, NOS Procedures: Surgery Specimen Level V HEADER OPERATION: ERAS, vaginal hysterectomy, right salpingo-oophorectomy PRE-OP DIAGNOSIS: Endometrial hyperplasia without atypia, simple mixed incontinence, incomplete uterovaginal prolapse TISSUE SUBMITTED: Uterus, right fallopian tube and ovary MICROSCOPIC DIAGNOSIS Uterus, hysterectomy: Cervix - nabothian cysts, squamous metaplasia and mild chronic inflammation. Endometrium - simple hyperplasia without atypia. Myometrium - adenomyosis and leiomyomas. Right fallopian tube - benign paratubal cysts. Right ovary - corpora albicantia. AM:marlena 01/10/19 MICROSCOPIC DESCRIPTION Slides are reviewed. GROSS DESCRIPTION Received in fixative is one container labeled with the patient's name and designated uterus, right fallopian tube and right ovary. The specimen consists of a hysterectomy specimen consisting of uterus, with cervix and detached one fallopian tube and ovary identified as right fallopian tube and right ovary. The uterus with cervix weighs 143 gm and measures 11 x 6 x 5 cm. The serosal surface is olsen, glistening. The ectocervical mucosa is unremarkable. The external os is pin point in contour. The endocervical canal measures 3 cm in length and the endocervical mucosa is olsen, glistening and unremarkable. Sections reveal a few cysts filled with mucoid material. The triangular endometrial cavity measures 5 cm in length and 3 cm in width. The endometrium is congested, hemorrhagic without any mass lesion and measures 0.1 cm in thickness. Sections of the uterine wall reveal three olsen nodular masses measuring 0.5 to 1 cm in greatest dimension. Sections of these masses reveal olsen whorled cut surfaces without areas of hemorrhage, necrosis or cystic degeneration. The uninvolved uterine wall measures up to 2.5 cm in thickness. A detached fallopian tube measures 3.5 cm in length and up to 0.5?cm in diameter. A minute paratubal cyst is noted measuring 0.3 cm in greatest dimension. The fimbrial end is identified. Sections reveal unremarkable cut surfaces. The detached ovary measures 2 x 1.5 x 1 cm. Sections reveal unremarkable cut surfaces. Respiratory Therapy Manager sections are submitted in 12?cassettes as follows: 1 - anterior cervix, 2 - posterior cervix, 3-6 - anterior endomyometrium, 710??posterior endomyometrium, entire endomyometrium is submitted, 11 - nodular masses, entirely submitted, 12 - fallopian tube and ovary. / ASH:marlena 01/09/19 TC:1 CPT: 23242
[2019-01-09] MEDS: Cefazolin 2 GM in 0.9% Normal Saline 100 ML IV (07:59)
--- NOTE | 2019-01-09 08:01 | PCM.HP.STD ---
Problem List (1) Mixed incontinence Status: Acute Comment: combo cases with Frankie (2) Incomplete uterovaginal prolapse Status: Acute History of Present Illness Date of Admission: 01/09/19 Chief Complaint: prolapse and incontinence, going for surgical intervention The patient is a 58 year old F seen by and undergoing hysterectomy for aplasia. She also has pelvic organ prolapse and mixed urinary incontinence. She desired to proceed with surgical intervention for this time currently with her hysterectomy. She subsequently had urodynamics and an office evaluation. Informed consent was obtained for anterior repair, posterior repair sacrospinous ligament fixation in the mid urethral sling with cystoscopy. Past Medical History Medical History: Medical History (Last Reviewed 01/09/19 @ 08:02 by Brissa David MD) Anxiety F41.9 Depression F32.9 Hyperlipidemia E78.5 Hypertension I10 Allergies No Known Allergies Allergy (Verified 01/03/19 10:04) Home Medications: Ambulatory Orders Medication Instructions Recorded Cholecalciferol (Vitamin D3) 5,000 unit PO DAILY 08/08/18 [Vitamin D3] Lisinopril/Hydrochlorothiazide 1 ea PO DAILY 08/08/18 [Lisinopril-Hctz 10-12.5 mg Tab] Paroxetine [Paxil] 20 mg PO DAILY 08/08/18 Pravastatin [Pravachol] 40 mg PO QHS 08/08/18 Surgical History: Surgical History (Last Reviewed 01/09/19 @ 08:02 by Brissa David MD) H/O tubal ligation Z98.51 H/O: knee surgery Z98.890 History of tonsillectomy Z90.89 Smoking Status: Never smoker Review of Systems Constitutional: Denies: Anorexia, Weight Change Eyes: Denies: Vision Change HEENT: Denies: Difficulty Hearing, Difficulty Swallowing Cardiovascular: Denies: Chest Pain Respiratory: Denies: Shortness of Breath Gastrointestinal: Denies: Abdominal Pain, Diarrhea, Nausea, Vomiting Genitourinary: Reports: Incontinence. Denies: Dysuria, Hematuria, Retention Musculoskeletal: Denies: Muscle pain Skin: Denies: Rash Neurological: Denies: Balance problems Endocrine: Denies: Change in Body Habitus VTE Information - Inpt Only VTE Present on Admission: Yes VTE Mechan Device Prophylaxis: SCD's VTE Pharm Prophylaxis ordered?: Yes - Physical Exam General: Alert, Oriented x3, Cooperative, No apparent distress, Well developed, Well nourished HEENT: Normocephalic Oral: Moist Mucosa Neck: Supple, Trachea Midline Lungs: Normal air movement Cardiovascular: Regular rate, Regular Rhythm Abdomen: Soft, Non Tender Extremities: No clubbing Skin: No rashes Musculoskeletal: No Tenderness to Palpation of Joints or Extremities, No Muscle Wasting Neurological: Cranial nerves II-XII grossly intact Psych/Mental Status: Normal Affect Vital Signs Temp Pulse Resp BP Pulse Ox 98.3 F 67 14 137/73 H 97 01/09/19 06:06 01/09/19 06:06 01/09/19 06:06 01/09/19 06:06 01/09/19 06:06 Oxygen Delivery Method Room Air Weight: 103.7 kg Body Mass Index (BMI) 39.2 Laboratory Tests Past 24 Hrs 01/09/19 06:10 Blood Type AB POSITIVE Antibody Screen NEGATIVE POC Glucose 01/09/19 06:11 POC Glucose 179 H Assessment/Plan All Active Problems (Last Reviewed 12/23/18 @ 13:51 by Tram Small) Endometrial hyperplasia without atypia, simple (Acute) Mixed incontinence (Acute) Incomplete uterovaginal prolapse (Acute) Postmenopausal bleeding (Resolved) Combined case with anterior repair, possible posterior repair, sacrospinous ligament fixation, midurethral sling, cystoscopy informed consent was obtained.
--- NOTE | 2019-01-09 08:06 | DCINST_ITS ---
Discharge Diet: No Restrictions Discharge Activity: May not drive while taking narcotic pain medications., May Shower May resume sexual activity in: 8 weeks Lifting Restrictions: 5 pounds for 8 weeks Additional Activity Instructions:: no exercise, no strenuous activity, no intercourse, nothing per vagina except estrogen cream as instructed Call your doctor if your incision/area has: Foul Smelling Discharge Call your doctor if you observe: Fever of 101 or Higher, Inability to urinate, Inability to have a bowel movement, Using more than one pad per hour, Shortness of breath, Chest pain, Calf discomfort, Uncontrolled pain Allergies/Adverse Reactions: Allergies No Known Allergies Allergy (Verified 01/03/19 10:04) Medications to take at Discharge Cholecalciferol (Vitamin D3) [Vitamin D3] 5,000 unit PO DAILY 08/08/18 Lisinopril/Hydrochlorothiazide [Lisinopril-Hctz 10-12.5 mg Tab] 1 ea PO DAILY 08/08/18 Paroxetine [Paxil] 20 mg PO DAILY 08/08/18 Pravastatin [Pravachol] 40 mg PO QHS 08/08/18 Primary Care Physician: Girish Cho Chi, MD [Primary Care Provider] - Test Results: Test results from this visit will be discussed in further detail at your follow- up appointment, if applicable. Please Follow Up With: Brissa David MD When: 2 weeks, call for appt Proposed Discharge Date: 01/10/19
--- NOTE | 2019-01-09 08:08 | OP.PCM_ITS ---
Problem List (1) Mixed incontinence Status: Acute Comment: combo cases with Frankie (2) Incomplete uterovaginal prolapse Status: Acute Report of Operation Date of Procedure: 01/09/19 Pre-Operative Diagnosis: incomplete uterovaginal prolapse, mixed incontinence Post-Operative Diagnosis: same Surgery/Procedure Performed:: posterior repair, sacrospinous ligament fixation, midurethral sling, cystoscopy with right ureteral catheterization Description of Surgical Findings:: following closure of cuff, the anterior defect was essentially less than grade 1 and I elected to repair the posterior and apical defects. The anterior length is not significant either, and the sacrospinous ligament fixation was done via posterior approach. 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 All risks benefits and alternatives were discussed preoperatively and she agreed to proceed. She was taken to the operating room and placed in the operating room table. She is a properly padded and secured to the table. Anesthesia monitored the head, neck, airway, IV access and vital signs throughout the case. Once anesthesia was appropriately administered she was placed in dorsal lithotomy in Trendelenburg position. Dr. Waldron performed a hysterectomy and right oophorectomy in the and closed the cuff. At this time, the anterior vaginal length was determined to be very short and the defect very minimal. However, the posterior defect was larger than what I anticipated in the office and I made the decision to repair the posterior defect and perform the sacral spinous ligament fixation from the posterior aspect. The submucosa was injected with 1% lidocaine with epinephrine for hydrostatic dissection and hemostatic control. A midline incision was made in sharp and blunt dissection were used to identify the rectovaginal fascia. The patient had multiple large varicosities in the submucosal space. These were effectively avoided with dissection. In the apical region the initial spine was palpated and the sacrospinous ligament was freed from surrounding tissues. The Adrienne device was used to obtain a suture through the ligament and was then brought out into the apex of the vagina in full-thickness fashion. The suture was set aside. The posterior defect was closed using interrupted 2-0 Vicryl in a 2 layer closure. The perineal body was brought together and repaired as well. At this time the midline incision was closed using running interlocking Vicryl. The Ethibond suture was then tied for apical support. Attention was turned towards the mid urethra which was again injected submucosally. A midline incision was made in vertical fashion over the mid urethra and both sharp and blunt dissection ensued until the space on the bilateral periurethral aspect was opened. The alto's mid urethral sling was then placed without difficulty. The sling was flat and lay against the urethra without tension. The midline incision was closed with running interlocking 2-0 Vicryl. A cystourethroscopy was then performed revealing no evidence of entry into the urinary bladder. A good ureteral jet was observed from the left side and on the right the jet was not seen. I inserted a 5 Divehi open-ended ureteral catheter without difficulty up to 20 cm and no blood was visualized and that there was no obstruction. At this time the scope was removed and the Delcid catheter was reinserted. The vagina was packed with packing and Premarin cream. The patient was awakened and taken to the recovery room in good condition. There were no complications during this procedure. Grafts/Implants Used: Altis midurethral sling - Complications none - Admit VTE Documentation VTE Present on Admission: Yes VTE Mechan Device Prophylaxis: SCD's VTE Pharm Prophylaxis ordered?: Yes
[2019-01-09] MEDS: Vasopressin 20 UNITS/ML Vial IM (08:40)
[2019-01-09] MEDS: Methylene Blue 1% 100 MG/10 ML VIAL (10:00)
[2019-01-09] MEDS: Estrogens,Conj. 1 Tube 1 DOSE (10:15)
[2019-01-09] MEDS: Ipratropium/Albuterol Sulfate 3 ML AMPUL.NEB INHALATION (10:45)
--- NOTE | 2019-01-09 10:49 | RAD_ITS ---
STUDY: X-RAY CHEST REASON FOR EXAM: Female, 58 years old. Shortness of breath. Status post hysterectomy. TECHNIQUE: Single AP portable view of the chest. COMPARISON: None. FINDINGS: EKG electrodes are seen. Mild degree of increased markings at the lung bases suggestive of bibasilar atelectasis. There is no demonstrated pleural abnormality. There is mild cardiac enlargement. Normal mediastinum and walt. Normal visualized pulmonary arteries. There is atherosclerotic tortuosity of the aortic arch and descending thoracic aorta. Normal visualized thoracic spine. Normal visualized ribs, clavicles, and shoulders. There is no demonstrated abnormality of the visualized soft tissue structures of the upper abdomen. RAD/Chest 1 View (Portable) IMPRESSION: Mild cardiomegaly. Mild increased markings at the lung bases suggestive of atelectasis. Electronically Signed: Ovidio Dyer, at 11:29 EDT , Service support ,
--- NOTE | 2019-01-09 11:53 | OP.PCM_ITS ---
Problem List (1) Endometrial hyperplasia without atypia, simple Status: Acute Comment: TVH BSO (2) Incomplete uterovaginal prolapse Status: Acute (3) Mixed incontinence Status: Acute Comment: combo cases with Frankie Report of Operation Date of Procedure: 01/09/19 Pre-Operative Diagnosis: prolapse Post-Operative Diagnosis: same Surgery/Procedure Performed:: tvh rso Description of Surgical Findings:: left para ovarian adhesions, enlarged uterus normal ovaries it technical support specialist: Aspen Ibarra it technical support specialist: Brissa David Type of Anesthesia:: General Special Medications: ancef Specimen's removed: utrus right ovary and tube Drains: mares Estimated Blood Loss (mL): 150 Fluids Replaced: crystalloid Description of Procedure: Patient was taken to the operating room and was placed under general anesthesia was prepped and draped in normal sterile fashion in the dorsal lithotomy position. Preoperative antibiotics and SCDs and Mares catheter was placed inside the bladder. Weighted speculum was placed in the vagina and the anterior and posterior lip of the cervix was grasped with 2 Saskia clamps and circumferentially injected with dilute vasopressin. A circumferential incision was made with a scalpel and the posterior cul-de-sac was entered into sharply and a longneck speculum was placed. The anterior cul-de-sac was also dissected down and entered into sharply and the uterosacral ligaments were clamped cut and suture ligated bilaterally followed by the cardinal ligaments which were Clamped cut and suture ligated bilaterally with 0 Monocryl. The uterus serially descended and progressive bites were taken bilaterally up to the level of the utero-ovarian ligament bilaterally which was clamped transected and double ligated with 0 Monocryl suture and 0 Vicryl free tie. Bilateral fallopian tubes and ovaries were well visualized and noted be within normal limits however there was omental to fallopian tube and ovarian adhesions noted on the left side and therefore due to their normal appearance and the adhesions present it was left in the patient. the right fallopian tube and ovary transected across the base with a Gely clamp and removed and sutured with 0 Vicryl suture. Excellent hemostasis was noted. The vagina was closed with [id number] 0 Vicryl pop offs including the posterior and anterior peritoneum in the reapproximation. Excellent hemostasis was noted. All instruments removed from the vagina clear urine was noted at the end of the procedure and patient was awoken and taken recovery in stable condition. - Complications none - Admit VTE Documentation VTE Present on Admission: No
[2019-01-09] MEDS: Ketorolac 30 MG/ML Syringe IV ×2 (13:02→18:21)
--- NOTE | 2019-01-09 21:05 | NURSING ---
Pt stood and ambulating in room at this time with 2 RNs present. Pt reports mild weakness to BLE, tolerated activity well. Denies dizziness.
[2019-01-09] MEDS: Docusate Sodium 100 MG Capsule PO (21:06)
[2019-01-09] MEDS: oxyCODONE 5 MG Tablet PO (21:08)
[2019-01-10] MEDS: Ketorolac 30 MG/ML Syringe IV ×2 (00:02→05:44)
[2019-01-10] MEDS: Acetaminophen 500 MG Tablet 1000 MG PO ×2 (00:02→06:19)
--- NOTE | 2019-01-10 01:39 | PCM.DC.VHY ---
Discharge Diet: No Restrictions Discharge Activity: May not drive while taking narcotic pain medications., May Shower May resume sexual activity in: 8 weeks Additional Activity Instructions:: no exercise, no strenuous activity, no intercourse, nothing per vagina except estrogen cream as instructed Call your doctor if your incision/area has: Foul Smelling Discharge Call your doctor if you observe: Fever of 101 or Higher, Inability to urinate, Inability to have a bowel movement, Using more than one pad per hour, Shortness of breath, Chest pain, Calf discomfort, Uncontrolled pain Allergies/Adverse Reactions: Allergies No Known Allergies Allergy (Verified 01/03/19 10:04) Medications to take at Discharge Cholecalciferol (Vitamin D3) [Vitamin D3] 5,000 unit PO DAILY 08/08/18 Lisinopril/Hydrochlorothiazide [Lisinopril-Hctz 10-12.5 mg Tab] 1 ea PO DAILY 08/08/18 Paroxetine [Paxil] 20 mg PO DAILY 08/08/18 Pravastatin [Pravachol] 40 mg PO QHS 08/08/18 Cephalexin [Keflex] 500 mg PO Q12 3 Days #6 cap 01/09/19 Naproxen [Naprosyn] 250 - 500 mg PO Q8H PRN PRN #30 tab 01/09/19 Oxycodone HCl/Acetaminophen [Percocet 5-325] 1 - 2 tab PO Q4H PRN PRN 7 Days #15 tab 01/09/19 The following prescriptions were given: Cephalexin [Keflex] 500 mg PO Q12 3 Days #6 cap Prescription Printed Naproxen [Naprosyn] 250 - 500 mg PO Q8H PRN PRN #30 tab PRN Reason: MILD PAIN Transmission Status: Received by [facility] Oxycodone HCl/Acetaminophen [Percocet 5-325] 1 - 2 tab PO Q4H PRN PRN 7 Days #15 tab PRN Reason: Pain Transmission Status: Received by [facility] Primary Care Physician: Girish Cho Chi, MD [Primary Care Provider] - Test Results: Test results from this visit will be discussed in further detail at your follow-up appointment, if applicable. Please Follow Up With: Brissa David MD When: 2 weeks, call for appt Proposed Discharge Date: 01/10/19
[2019-01-10 03:20] VITALS: BP 116/60; PULSE 67; RESP 16; TEMP 36.8; O2SAT 92
--- NOTE | 2019-01-10 06:22 | NURSING ---
Delcid catheter and vaginal packing removed at this time. Pt tolerated well.
[2019-01-10 07:40] VITALS: O2SAT 91
[2019-01-10 07:47] VITALS: BP 111/57; PULSE 66; RESP 18; TEMP 37.2; O2SAT 95
[2019-01-10] MEDS: Docusate Sodium 100 MG Capsule PO (08:01)
[2019-01-10 08:23] LABS: Hematocrit 35.5 % (37-47); Hemoglobin 11.5 g/dl (12.0-15.0); Mean Corp Hgb Conc 32.4 g/gl (32-36); Mean Corpuscular Volume 92.7 fL (81-99); Mean Platelet Vol. 10.8 fl (6.2-12.0); Platelet Count 282 K/mm3 (150-450); RBC Distribution Width CV 13.5 % (11.6-14.6); Red Blood Count 3.83 M/mm3 (4.2-5.4); White Blood Count 21.9 K/mm3 (4.4-11.0)
[2019-01-10 08:43] LABS: Scan Indicated on CBC? Y/N NO
--- NOTE | 2019-01-10 09:57 | PCM.PN.OB ---
Subjective: pain controlled no issues - Physical Exam General: Alert, Oriented x3 Vital Signs Temp Pulse Resp BP Pulse Ox 99 F 66 18 111/57 L 95 01/10/19 07:47 01/10/19 07:47 01/10/19 07:47 01/10/19 07:47 01/10/19 07:47 Oxygen Flow Rate (L/min) 6 Oxygen Delivery Method Room Air Weight: 228 lb 9.91 oz Body Mass Index (BMI) 39.2 Intake and Output for Last 24 Hours 01/08/19 01/09/19 01/10/19 23:59 23:59 23:59 Intake Total 2910 / 3912 1404 / 1404 Output Total 880 / 3780 4050 / 4050 Balance 2030 / 132 -2646 / -2646 Laboratory Tests Past 24 Hrs 01/10/19 07:57 WBC 21.9 H RBC 3.83 L Hgb 11.5 L Hct 35.5 L MCV 92.7 MCH 30.0 MCHC 32.4 RDW 13.5 RDW Differential 45.0 H Plt Count 282 MPV 10.8 Medical Necessity - Tobacco Use Smoking Status: Never smoker Assessment/Plan All Active Problems (Last Reviewed 01/09/19 @ 08:02 by Brisas David MD) Endometrial hyperplasia without atypia, simple (Acute) Mixed incontinence (Acute) Incomplete uterovaginal prolapse (Acute) Postmenopausal bleeding (Resolved) doing well no complaints routine care dc home
== END 2019-01-10 11:05 | disposition home or self-care (01) ==
LOC: SDC 05:39 → AC 05:40 → MS2 08:21
PROVIDERS: Urology; Family Provider Family Medicine Geriatric Medicine; PCP Family Medicine Geriatric Medicine; Referring Provider Obstetrics & Gynecology; Visit Provider Obstetrics & Gynecology
PROC: (CPT 58260; principal; 2019-01-09 07:10)
PROC: (CPT 57260; 2019-01-09 07:10)
DX: N81.2 Incomplete uterovaginal prolapse (principal); N39.46 Mixed incontinence; N73.6 Female pelvic peritoneal adhesions (postinfective); N88.8 Other specified noninflammatory disorders of cervix uteri; N83.8 Other noninflammatory disorders of ovary, fallopian tube and broad ligament; I10 Essential (primary) hypertension; E78.5 Hyperlipidemia, unspecified; F32.9 Major depressive disorder, single episode, unspecified; F41.9 Anxiety disorder, unspecified; Z98.51 Tubal ligation status
CPT/HCPCS: 00840; 52000; 57250; 57282; 58262; 36415; 71045; 82962; 85027; 86850; 86900; 88307; 94640; J7120; C1758; J2405

== ENCOUNTER → 2019-03-21 09:59 | Outpatient (CLI) | payer OTHER, SELFPAY ==
[2019-02-23 23:50] VITALS: BMI 39.2
[2019-03-21 12:56] LABS: Absolute Lymphocyte Count 2.71 X10^3/uL (0.83-4.51); Absolute Neutrophil Count 3.5 X10^3/uL (2.0-7.7); Basophil# 0.08 X10^3/uL; Basophil% 1.1 % (0-1); Eosinophil# 0.34 X10^3/uL; Eosinophils% 4.8 % (0-5); Hematocrit 41.3 % (37-47); Hemoglobin 13.4 g/dL (12.0-15.0); Lymphocyte # 2.71 X10^3/ul (4.0); Lymphocyte % 38.1 % (19-41); Mean Corp Hgb Conc 32.4 g/dL (32-36); Mean Corpuscular Hgb 30.1 pg (27.0-32.0); Mean Corpuscular Volume 92.8 fL (81-99); Mean Platelet Vol. 11.5 fl (6.2-12.0); Monocyte# 0.41 X10^3/uL; Monocyte% 5.8 % (0-10); NRBC Flagged by Analyzer 0 % (0-5); Neutrophil # 3.51 X10^3/uL (2.7-7.7); Neutrophil % 49.4 % (47-70); Platelet Count 341 K/mm3 (150-450); RBC Distribution Width CV 12.7 % (11.6-14.6); RBC Distribution Width SD 43.7 fl (35.1-43.9); Red Blood Count 4.45 M/mm3 (4.2-5.4); White Blood Count 7.1 K/mm3 (4.4-11.0)
[2019-03-21 13:25] LABS: Vitamin D,25 Hydroxy 25.7 ng/mL (29.95-100.01)
[2019-03-21 14:01] LABS: ALB/GLOB Ratio 0.9 RATIO (0.9-2.4); AST(SGOT) 22 U/L (15-37); Alanine Aminotransfer ALT/SGPT 34 U/L (13-56); Albumin, Serum 3.6 g/dL (3.2-5.0); Alkaline Phosphatase 82 U/L (45-117); Anion Gap 7 (5-15); BUN 18 mg/dL (7-18); BUN/Creat Ratio 19.9 RATIO (10-20); Calcium,Total 8.9 mg/dL (8.5-10.1); Chloride 110 mmol/L (98-107); EST Glomerular Filtration Rate 67 mL/min (>60); Est Glom Filt Rate - Afr Amer 82 mL/min (>60); Glucose 142 mg/dL (74-106); Potassium 3.9 mmol/L (3.5-5.1); Protein, Total 7.6 g/dL (6.4-8.2); Sodium Level 140 mmol/L (136-145); Thyroid Stim Hormone (TSH) 3.31 uIU/mL (0.358-3.74)
[2019-03-24 10:00] LABS: Hemoglobin A1c 6.4 % (4.2-6.3)
== END ==
PROVIDERS: Family Provider Family Medicine Geriatric Medicine; PCP Family Medicine Geriatric Medicine; Visit Provider Family Medicine Geriatric Medicine
DX: E55.9 Vitamin D deficiency, unspecified (principal); I10 Essential (primary) hypertension; E11.9 Type 2 diabetes mellitus without complications
CPT/HCPCS: 36415; 80053; 82306; 83036; 84443; 85025

== ENCOUNTER → 2019-09-19 09:41 | Outpatient (CLI) | payer SELFPAY ==
[2019-02-23 23:50] VITALS: BMI 39.2
[2019-09-19 10:22] LABS: Absolute Lymphocyte Count 2.26 X10^3/uL (0.83-4.51); Absolute Neutrophil Count 3.6 X10^3/uL (2.0-7.7); Basophil# 0.05 X10^3/uL; Basophil% 0.8 % (0-1); Eosinophil# 0.23 X10^3/uL; Eosinophils% 3.5 % (0-5); Hematocrit 41.9 % (37-47); Hemoglobin 13.6 g/dL (12.0-15.0); Lymphocyte # 2.26 X10^3/ul (4.0); Lymphocyte % 34.2 % (19-41); Mean Corp Hgb Conc 32.5 g/dL (32-36); Mean Corpuscular Hgb 29.5 pg (27.0-32.0); Mean Corpuscular Volume 90.9 fL (81-99); Mean Platelet Vol. 11.3 fl (6.2-12.0); Monocyte# 0.42 X10^3/uL; Monocyte% 6.4 % (0-10); NRBC Flagged by Analyzer 0 % (0-5); Neutrophil # 3.61 X10^3/uL (2.7-7.7); Neutrophil % 54.6 % (47-70); Platelet Count 333 K/mm3 (150-450); RBC Distribution Width CV 12.8 % (11.6-14.6); Red Blood Count 4.61 M/mm3 (4.2-5.4); White Blood Count 6.6 K/mm3 (4.4-11.0)
[2019-09-19 10:53] LABS: ALB/GLOB Ratio 0.9 RATIO (0.9-2.4); AST(SGOT) 18 U/L (15-37); Alanine Aminotransfer ALT/SGPT 23 U/L (13-56); Albumin, Serum 3.5 g/dL (3.2-5.0); Alkaline Phosphatase 81 U/L (45-117); Anion Gap 5 (5-15); BUN 16 mg/dL (7-18); BUN/Creat Ratio 16.1 RATIO (10-20); Chloride 107 mmol/L (98-107); Creatinine, Serum 0.99 mg/dL (0.55-1.02); EST Glomerular Filtration Rate 60 mL/min (>60); Est Glom Filt Rate - Afr Amer 73 mL/min (>60); Globulin 4.1 g/dL (2.2-4.2); Glucose 139 mg/dL (74-106); Potassium 3.7 mmol/L (3.5-5.1); Protein, Total 7.6 g/dL (6.4-8.2); Sodium Level 140 mmol/L (136-145)
== END ==
PROVIDERS: PCP Family Medicine Geriatric Medicine; Visit Provider Family Medicine Geriatric Medicine
DX: E11.9 Type 2 diabetes mellitus without complications (principal); E55.9 Vitamin D deficiency, unspecified; I10 Essential (primary) hypertension
CPT/HCPCS: 36415; 80053; 82306; 84443; 85025

== ENCOUNTER → 2020-07-08 08:54 | Outpatient (CLI) | payer SELFPAY ==
[2019-02-23 23:50] VITALS: BMI 39.2
[2020-07-08 11:28] LABS: Absolute Lymphocyte Count 2.31 X10^3/uL (0.83-4.51); Absolute Neutrophil Count 4.4 X10^3/uL (2.0-7.7); Basophil# 0.07 X10^3/uL; Basophil% 0.9 % (0-1); Eosinophil# 0.23 X10^3/uL; Hematocrit 41.4 % (37-47); Hemoglobin 13.5 g/dL (12.0-15.0); Lymphocyte # 2.31 X10^3/ul (4.0); Lymphocyte % 30.5 % (19-41); Mean Corp Hgb Conc 32.6 g/dL (32-36); Mean Corpuscular Hgb 29.9 pg (27.0-32.0); Mean Corpuscular Volume 91.8 fL (81-99); Mean Platelet Vol. 11.1 fl (6.2-12.0); Monocyte# 0.47 X10^3/uL; Monocyte% 6.2 % (0-10); NRBC Flagged by Analyzer 0 % (0-5); Neutrophil # 4.44 X10^3/uL (2.7-7.7); Neutrophil % 58.6 % (47-70); Platelet Count 378 K/mm3 (150-450); RBC Distribution Width CV 12.9 % (11.6-14.6); Red Blood Count 4.51 M/mm3 (4.2-5.4); White Blood Count 7.6 K/mm3 (4.4-11.0)
[2020-07-08 11:41] LABS: Vitamin D,25 Hydroxy 16.2 ng/mL
[2020-07-08 12:02] LABS: ALB/GLOB Ratio 0.9 RATIO (0.9-2.4); AST(SGOT) 27 U/L (15-37); Alanine Aminotransfer ALT/SGPT 36 U/L (13-56); Albumin, Serum 3.6 g/dL (3.2-5.0); Alkaline Phosphatase 96 U/L (45-117); Anion Gap 7 (5-15); BUN 17 mg/dL (7-18); BUN/Creat Ratio 16.3 RATIO (10-20); Calcium,Total 9.1 mg/dL (8.5-10.1); Chloride 108 mmol/L (98-107); Creatinine, Serum 1.04 mg/dL (0.55-1.02); EST Glomerular Filtration Rate 57 mL/min (>60); Est Glom Filt Rate - Afr Amer 69 mL/min (>60); Globulin 4.2 g/dL (2.2-4.2); Glucose 138 mg/dL (74-106); Protein, Total 7.8 g/dL (6.4-8.2); Sodium Level 140 mmol/L (136-145); Thyroid Stim Hormone (TSH) 1.77 uIU/mL (0.358-3.74)
== END ==
LOC: POLAB3 08:56
PROVIDERS: PCP Family Medicine Geriatric Medicine; Visit Provider Family Medicine Geriatric Medicine
DX: E55.9 Vitamin D deficiency, unspecified (principal); I10 Essential (primary) hypertension
CPT/HCPCS: 36415; 80053; 82306; 84443; 85025

== ENCOUNTER → 2020-08-11 07:14 | Outpatient (CLI) | payer OTHER, SELFPAY ==
[2019-02-23 23:50] VITALS: BMI 39.2
--- NOTE | 2020-08-11 07:17 | BI_ITS ---
MAMMOGRAPHY - BILATERAL SCREENING REASON FOR EXAM: Female, 60 years old. Routine annual screening examination. PERTINENT HISTORY: Non-contributory. TECHNIQUE: Digital bilateral breast john (3D mammographic acquisition) in the CC and MLO projections. 2-D mediolateral oblique (MLO) and craniocaudad (CC) views of both breasts were obtained. CAD: Full Field Digital Mammography with Computer Added Detection was performed. COMPARISON: None. Baseline examination. FINDINGS: Breast Composition: There are scattered areas of fibroglandular density. There are no dominant masses or suspicious calcifications. Benign-appearing bilateral axillary lymph nodes. No other significant abnormalities are identified. BI/SCRN MAMM (CAD)W/JOHN BILAT IMPRESSION: Negative screening mammogram. Yearly followup mammogram recommended. (A) ASSESSMENT CATEGORY: BIRADS Category 2: Benign. A letter regarding these results will be sent to the patient by the facility within 30 days. Approximately 10% of breast cancers are not detected by mammography. A normal mammogram should not delay biopsy of a clinically suspicious abnormality. [id number] Electronically Signed: Ovidio Dyer MD at 8:34 EST , Service support ,
== END ==
PROVIDERS: PCP Family Medicine Geriatric Medicine; Referring Provider Family Medicine Geriatric Medicine; Visit Provider Family Medicine Geriatric Medicine
DX: Z12.31 Encounter for screening mammogram for malignant neoplasm of breast (principal)
CPT/HCPCS: 77063; 77067

== ENCOUNTER → 2021-01-10 09:09 | Outpatient (CLI) | payer OTHER, SELFPAY ==
[2019-02-23 23:50] VITALS: BMI 39.2
[2021-01-10 12:15] LABS: Absolute Lymphocyte Count 3.01 X10^3/uL (0.83-4.51); Absolute Neutrophil Count 4.5 X10^3/uL (2.0-7.7); Basophil# 0.09 X10^3/uL; Eosinophil# 0.29 X10^3/uL; Eosinophils% 3.4 % (0-5); Hematocrit 41.5 % (37-47); Hemoglobin 13.5 g/dL (12.0-15.0); Lymphocyte # 3.01 X10^3/ul (0.83-4.51); Mean Corp Hgb Conc 32.5 g/dL (32-36); Mean Corpuscular Hgb 29.8 pg (27.0-32.0); Mean Corpuscular Volume 91.6 fL (81-99); Mean Platelet Vol. 11.2 fl (6.2-12.0); Monocyte# 0.65 X10^3/uL; Monocyte% 7.6 % (0-10); NRBC Flagged by Analyzer 0 % (0-5); Neutrophil # 4.45 X10^3/uL (2.7-7.7); Neutrophil % 51.8 % (47-70); Platelet Count 361 K/mm3 (150-450); RBC Distribution Width CV 13.2 % (11.6-14.6); RBC Distribution Width SD 44.6 fl (35.1-43.9); Red Blood Count 4.53 M/mm3 (4.2-5.4); White Blood Count 8.6 K/mm3 (4.4-11.0)
[2021-01-10 12:40] LABS: ALB/GLOB Ratio 0.8 RATIO (0.9-2.4); AST(SGOT) 33 U/L (15-37); Alanine Aminotransfer ALT/SGPT 37 U/L (13-56); Albumin, Serum 3.3 g/dL (3.2-5.0); Alkaline Phosphatase 90 U/L (45-117); Anion Gap 6 (5-15); BUN 17 mg/dL (7-18); BUN/Creat Ratio 17.6 RATIO (10-20); Calcium,Total 8.7 mg/dL (8.5-10.1); Chloride 106 mmol/L (98-107); Creatinine, Serum 0.97 mg/dL (0.55-1.02); EST Glomerular Filtration Rate 62 mL/min (>60); Est Glom Filt Rate - Afr Amer 75 mL/min (>60); Glucose 132 mg/dL (74-106); Potassium 3.9 mmol/L (3.5-5.1); Protein, Total 7.3 g/dL (6.4-8.2); Sodium Level 138 mmol/L (136-145); Thyroid Stim Hormone (TSH) 3.34 uIU/mL (0.358-3.74)
[2021-01-10 15:42] LABS: Vitamin D,25 Hydroxy 22.5 ng/mL
== END ==
PROVIDERS: PCP Family Medicine Geriatric Medicine; Visit Provider Family Medicine Geriatric Medicine
DX: E55.9 Vitamin D deficiency, unspecified (principal); I10 Essential (primary) hypertension
CPT/HCPCS: 36415; 80053; 82306; 84443; 85025

== ENCOUNTER 2021-07-11 09:07 | Outpatient (CLI) | payer OTHER, SELFPAY ==
[2021-07-11 11:41] LABS: Absolute Lymphocyte Count 3.41 X10^3/uL (0.83-4.51); Absolute Neutrophil Count 5.7 X10^3/uL (2.0-7.7); Eosinophil# 0.24 X10^3/uL; Eosinophils% 2.4 % (0-5); Hematocrit 45.9 % (37-47); Lymphocyte # 3.41 X10^3/ul (0.83-4.51); Mean Corp Hgb Conc 32.7 g/dL (32-36); Mean Corpuscular Volume 91.8 fL (81-99); Mean Platelet Vol. 11.1 fl (6.2-12.0); Monocyte# 0.54 X10^3/uL; Monocyte% 5.4 % (0-10); NRBC Flagged by Analyzer 0 % (0-5); Neutrophil # 5.67 X10^3/uL (2.7-7.7); Neutrophil % 56.5 % (47-70); Platelet Count 416 K/mm3 (150-450); RBC Distribution Width CV 12.9 % (11.6-14.6); RBC Distribution Width SD 43.6 fl (35.1-43.9)
[2021-07-11 12:07] LABS: ALB/GLOB Ratio 0.8 RATIO (0.9-2.4); AST(SGOT) 19 U/L (15-37); Alanine Aminotransfer ALT/SGPT 38 U/L (13-56); Albumin, Serum 3.6 g/dL (3.2-5.0); Alkaline Phosphatase 94 U/L (45-117); Anion Gap 8 (5-15); BUN 21 mg/dL (7-18); BUN/Creat Ratio 17.1 RATIO (10-20); Calcium,Total 9.4 mg/dL (8.5-10.1); Chloride 103 mmol/L (98-107); Creatinine, Serum 1.23 mg/dL (0.55-1.02); EST Glomerular Filtration Rate 47 mL/min (>60); Est Glom Filt Rate - Afr Amer 57 mL/min (>60); Globulin 4.7 g/dL (2.2-4.2); Glucose 146 mg/dL (74-106); Potassium 3.9 mmol/L (3.5-5.1); Protein, Total 8.3 g/dL (6.4-8.2); Sodium Level 139 mmol/L (136-145)
[2021-07-11 13:12] LABS: Vitamin D,25 Hydroxy 28.9 ng/mL
== END 2021-07-11 23:59 | disposition short-term general hospital (02) ==
LOC: POLAB3 09:08
PROVIDERS: PCP Family Medicine Geriatric Medicine; Visit Provider Family Medicine Geriatric Medicine
DX: I10 Essential (primary) hypertension (principal); E55.9 Vitamin D deficiency, unspecified
CPT/HCPCS: 36415; 80053; 82306; 84443; 85025

== ENCOUNTER → 2021-11-07 | Outpatient (CLI) | payer OTHER, SELFPAY ==
--- NOTE | 2021-11-07 12:58 | US_ITS ---
STUDY: RENAL ULTRASOUND - COMPLETE REASON FOR EXAM: Female, 61 years old. PRERENAL AZOTEMIA TECHNIQUE: Ultrasound evaluation of the kidneys was performed with real-time and static cheema-scale imaging. COMPARISON: None. FINDINGS: RIGHT KIDNEY: Normal location of the right kidney, which is normal in size. The right kidney measures 11.6 cm x 5.5 cm x 4.5 cm. There is a normal cortex of the right kidney. The renal cortex measures 1.5 cm. There is no right renal mass or cyst. There are no right renal calculi. There is no right hydronephrosis. DISTAL RIGHT URETER: There is non-visualization of the distal right ureter. There is no demonstrated right ureterovesical junction calculus. There is a visualized right ureteral jet. LEFT KIDNEY: Normal location of the left kidney, which is normal in size. The left kidney measures 11.4 cm x 5.8 cm x 5.1 cm. There is a normal cortex of the left kidney. The renal cortex measures 1.3 cm. There is no left renal mass or cyst. There are no left renal calculi. There is no left hydronephrosis. DISTAL LEFT URETER: There is non-visualization of the distal left ureter. There is no demonstrated left ureterovesical junction calculus. There is a visualized left ureteral jet. BLADDER: The distended urinary bladder has a volume of 227 ml. There is a normal wall thickness of the distended urinary bladder. There is no demonstrated mass within the urinary bladder. There are no demonstrated bladder calculi. US/Kidney and Bladder IMPRESSION: Normal ultrasound of the kidneys and urinary bladder. Electronically Signed: Ovidio Dyer MD at 15:50 EDT ,
== END | disposition home or self-care (01) ==
PROVIDERS: PCP Family Medicine Geriatric Medicine; Referring Provider Internal Medicine Nephrology; Visit Provider Internal Medicine Nephrology
DX: N25.9 Disorder resulting from impaired renal tubular function, unspecified (principal)
CPT/HCPCS: 76770

== ENCOUNTER → 2021-12-07 | Outpatient (CLI) | payer OTHER, SELFPAY ==
[2021-12-07 14:24] LABS: Anion Gap 5 (5-15); BUN 19 mg/dL (7-18); BUN/Creat Ratio 20.3 RATIO (10-20); Calcium,Total 9.1 mg/dL (8.5-10.1); Chloride 105 mmol/L (98-107); Creatinine, Serum 0.94 mg/dL (0.55-1.02); EST Glomerular Filtration Rate 64 mL/min (>60); Est Glom Filt Rate - Afr Amer 78 mL/min (>60); Glucose 130 mg/dL (74-106); Sodium Level 137 mmol/L (136-145)
== END | disposition home or self-care (01) ==
LOC: LAB 13:31
PROVIDERS: PCP Family Medicine Geriatric Medicine; Referring Provider Internal Medicine Nephrology; Visit Provider Internal Medicine Nephrology
DX: N25.9 Disorder resulting from impaired renal tubular function, unspecified (principal)
CPT/HCPCS: 36415; 80048

== ENCOUNTER → 2022-01-09 | Outpatient (CLI) | payer OTHER, SELFPAY ==
[2022-01-09 12:28] LABS: Absolute Lymphocyte Count 2.99 X10^3/uL (0.83-4.51); Absolute Neutrophil Count 5.1 X10^3/uL (2.0-7.7); Basophil# 0.08 X10^3/uL; Basophil% 0.9 % (0-1); Eosinophil# 0.22 X10^3/uL; Eosinophils% 2.4 % (0-5); Hematocrit 43.2 % (37-47); Hemoglobin 13.8 g/dL (12.0-15.0); Lymphocyte # 2.99 X10^3/ul (0.83-4.51); Mean Corp Hgb Conc 31.9 g/dL (32-36); Mean Corpuscular Hgb 29.7 pg (27.0-32.0); Mean Corpuscular Volume 93.1 fL (81-99); Mean Platelet Vol. 11.4 fl (6.2-12.0); Monocyte# 0.59 X10^3/uL; Monocyte% 6.5 % (0-10); NRBC Flagged by Analyzer 0 % (0-5); Neutrophil % 56.4 % (47-70); Platelet Count 366 K/mm3 (150-450); RBC Distribution Width CV 13.2 % (11.6-14.6); RBC Distribution Width SD 45.3 fl (35.1-43.9); Red Blood Count 4.64 M/mm3 (4.2-5.4); White Blood Count 9.1 K/mm3 (4.4-11.0)
[2022-01-09 13:04] LABS: ALB/GLOB Ratio 0.8 RATIO (0.9-2.4); AST(SGOT) 22 U/L (15-37); Alanine Aminotransfer ALT/SGPT 26 U/L (13-56); Albumin, Serum 3.4 g/dL (3.2-5.0); Alkaline Phosphatase 77 U/L (45-117); Anion Gap 9 (5-15); BUN 14 mg/dL (7-18); BUN/Creat Ratio 13.1 RATIO (10-20); Calcium,Total 9.1 mg/dL (8.5-10.1); Chloride 105 mmol/L (98-107); Creatinine, Serum 1.07 mg/dL (0.55-1.02); EST Glomerular Filtration Rate 55 mL/min (>60); Est Glom Filt Rate - Afr Amer 67 mL/min (>60); Glucose 139 mg/dL (74-106); Potassium 4.3 mmol/L (3.5-5.1); Protein, Total 7.4 g/dL (6.4-8.2); Sodium Level 141 mmol/L (136-145); Thyroid Stim Hormone (TSH) 1.61 uIU/mL (0.358-3.74)
[2022-01-09 13:22] LABS: Vitamin D,25 Hydroxy 26.9 ng/mL
== END | disposition home or self-care (01) ==
LOC: POLAB3 09:33
PROVIDERS: PCP Family Medicine Geriatric Medicine; Visit Provider Family Medicine Geriatric Medicine
DX: E55.9 Vitamin D deficiency, unspecified (principal); I10 Essential (primary) hypertension
CPT/HCPCS: 36415; 80053; 82306; 84443; 85025

== ENCOUNTER → 2024-02-11 | Outpatient (CLI) | payer SELFPAY ==
[2024-02-11 13:43] LABS: Absolute Lymphocyte Count 4.15 X10^3/uL (0.83-4.51); Absolute Neutrophil Count 7.5 X10^3/uL (2.0-7.7); Basophil# 0.12 X10^3/uL; Basophil% 0.9 % (0-1); Eosinophil# 0.33 X10^3/uL; Eosinophils% 2.5 % (0-5); Hematocrit 42.2 % (37-47); Hemoglobin 13.7 g/dL (12.0-15.0); Lymphocyte # 4.15 X10^3/ul (0.83-4.51); Lymphocyte % 31.7 % (19-41); Mean Corp Hgb Conc 32.5 g/dL (32-36); Mean Corpuscular Hgb 29.4 pg (27.0-32.0); Mean Corpuscular Volume 90.6 fL (81-99); Mean Platelet Vol. 10.9 fl (6.2-12.0); Monocyte# 0.89 X10^3/uL; Monocyte% 6.8 % (0-10); NRBC Flagged by Analyzer 0 % (0-5); Neutrophil # 7.47 X10^3/uL (2.7-7.7); Neutrophil % 57.1 % (47-70); POSITIVE MORPHOLOGY YES; Platelet Count 401 K/mm3 (150-450); RBC Distribution Width SD 42.2 fl (35.1-43.9); Red Blood Count 4.66 M/mm3 (4.2-5.4); White Blood Count 13.1 K/mm3 (4.4-11.0)
[2024-02-11 14:17] LABS: Differential Indicated SCAN CRITERIA MET
[2024-02-11 14:23] LABS: ALB/GLOB Ratio 0.8 RATIO (0.9-2.4); AST(SGOT) 28 U/L (15-37); Alanine Aminotransfer ALT/SGPT 27 U/L (13-56); Albumin, Serum 3.5 g/dL (3.2-5.0); Alkaline Phosphatase 89 U/L (45-117); Anion Gap 7 (5-15); BUN 16 mg/dL (7-18); Chloride 106 mmol/L (98-107); Creatinine, Serum 0.89 mg/dL (0.55-1.02); EST Glomerular Filtration Rate 68 mL/min (>60); Est Glom Filt Rate - Afr Amer 82 mL/min (>60); Globulin 4.5 g/dL (2.2-4.2); Glucose 178 mg/dL (74-106); Sodium Level 138 mmol/L (136-145); Thyroid Stim Hormone (TSH) 2.94 uIU/mL (0.358-3.74)
[2024-02-11 14:39] LABS: Atypical Lymphocyte 1+ %
== END | disposition home or self-care (01) ==
PROVIDERS: PCP Family Medicine Geriatric Medicine; Visit Provider Family Medicine Geriatric Medicine
DX: I10 Essential (primary) hypertension (principal); E55.9 Vitamin D deficiency, unspecified
CPT/HCPCS: 36415; 80053; 82306; 84443; 85025

== ENCOUNTER → 2024-02-28 | Outpatient (CLI) | payer MEDICARE, OTHER, SELFPAY ==
--- NOTE | 2024-02-28 13:46 | BI_ITS ---
MAMMOGRAPHY - BILATERAL SCREENING REASON FOR EXAM: Female, 63 years old. Routine annual screening examination. PERTINENT HISTORY: Non-contributory. TECHNIQUE: Digital bilateral breast john (3D mammographic acquisition) in the CC and MLO projections. 2-D mediolateral oblique (MLO) and craniocaudad (CC) views of both breasts were obtained. CAD: Full Field Digital Mammography with Computer Added Detection was performed. COMPARISON: Comparison is made with prior study of August 11, 2020. FINDINGS: Breast Composition: The breasts are almost entirely fatty. There are no dominant masses or suspicious calcifications. Stable small benign-appearing bilateral axillary lymph nodes. No other significant abnormalities are identified. There has been no significant change since the prior study. BI/SCRN MAMM (CAD)W/JOHN BILAT IMPRESSION: Stable bilateral screening mammogram. Yearly follow-up mammogram recommended. (A) ASSESSMENT CATEGORY: BIRADS Category 2: Benign. A letter regarding these results will be sent to the patient by the facility within 30 days. Approximately 10% of breast cancers are not detected by mammography. A normal mammogram should not delay biopsy of a clinically suspicious abnormality. [id number] Electronically Signed: Ovidio Dyer MD at 15:34 EDT ,
--- NOTE | 2024-02-28 13:48 | BD_ITS ---
STUDY: DUAL ENERGY X-RAY ABSORPTIOMETRY / DXA REASON FOR EXAM: Female, 63 years old. ROSI TECHNIQUE: Bone Mineral Density (BMD) measurements of lumbar spine and bilateral hips were obtained. COMPARISON: None. FINDINGS: Lumbar Spine (L1-L4): g/cm2 (1.013) / T-score (-0.3) / Z-score (1.5) Findings are suggestive of normal bone density with a low fracture risk. Left Femur Total: g/cm2 (0.928) / T-score (-0.1) / Z-score (1.2) Left Femoral Neck: g/cm2 (0.753) / T-score (-0.9) / Z-score (0.7) Right Femur Total: g/cm2 (0.998) / T-score (0.5) / Z-score (1.7) Right Femoral Neck: g/cm2 (0.709) / T-score (-1.3) / Z-score (0.3) BD/Dexa Bone Density Study IMPRESSION: The patient is considered osteopenic as outlined below according to World Y[employer] Organization (WHO) criteria with a low fracture risk. Reference Information: The T-score is the number of standard deviations above or below the standard which is normal for young adults at their peak bone mineral density. The World Health Organization (WHO) interprets the T-scores as follows: Above -1 Normal bone density Between -1 and -2.5 Osteopenia Equal to / or below -2.5 Osteoporosis As a practical clinical guideline, osteopenia may be graded as follows: Mild -1 through -1.5 Moderate -1.6 through -2.0 Severe -2.1 through -2.4 The Z-score is the number of standard deviations above or below age-matched controls. A Z-score of less than -1.5 would be considered abnormal. References: 1. NIH Osteoporosis and Related Bone Diseases www osteo.org 2. International Society for Clinical Densitometry www iscd.org 3. National Osteoporosis Foundation www nof.org Electronically Signed: Ovidio Dyer MD at 10:38 EDT ,
== END | disposition home or self-care (01) ==
LOC: OPBD 13:44
PROVIDERS: PCP Family Medicine Geriatric Medicine; Referring Provider Family Medicine Geriatric Medicine; Visit Provider Family Medicine Geriatric Medicine
DX: Z12.31 Encounter for screening mammogram for malignant neoplasm of breast (principal); Z78.0 Asymptomatic menopausal state
CPT/HCPCS: 77063; 77067; 77080

== ENCOUNTER → 2024-03-12 | Outpatient (CLI) | payer MEDICARE, OTHER, SELFPAY | END | disposition home or self-care (01) | LOC: POLAB3 12:15 | PROVIDERS: PCP Family Medicine Geriatric Medicine; Visit Provider Family Medicine Geriatric Medicine | DX: R68.83 Chills (without fever) (principal) | CPT/HCPCS: 87631 ==

== ENCOUNTER → 2024-07-01 | Outpatient (CLI) | payer MEDICARE, SELFPAY | END | disposition home or self-care (01) | PROVIDERS: PCP Family Medicine Geriatric Medicine; Referring Provider Physician Assistant; Visit Provider Physician Assistant | DX: R30.0 Dysuria (principal) | CPT/HCPCS: 87086; 87088; 87186 ==

== ENCOUNTER → 2024-07-25 | Outpatient (CLI) | payer MEDICARE, SELFPAY | END | disposition home or self-care (01) | LOC: POLAB3 10:11 | PROVIDERS: PCP Family Medicine Geriatric Medicine; Visit Provider Family Medicine Geriatric Medicine | DX: R68.83 Chills (without fever) (principal) | CPT/HCPCS: 87631 ==

== ENCOUNTER → 2024-08-12 | Outpatient (CLI) | payer MEDICARE, SELFPAY ==
[2024-08-12 12:42] LABS: Absolute Lymphocyte Count 2.02 X10^3/uL (0.83-4.51); Basophil# 0.05 X10^3/uL; Basophil% 0.7 % (0-1); Eosinophil# 0.65 X10^3/uL; Eosinophils% 9.4 % (0-5); Hematocrit 43.3 % (37-47); Hemoglobin 14.5 g/dL (12.0-15.0); Lymphocyte # 2.02 X10^3/ul (0.83-4.51); Lymphocyte % 29.1 % (19-41); Mean Corp Hgb Conc 33.5 g/dL (32-36); Mean Corpuscular Hgb 30.1 pg (27.0-32.0); Mean Platelet Vol. 10.8 fl (6.2-12.0); Monocyte# 1.14 X10^3/uL; Monocyte% 16.5 % (0-10); NRBC Flagged by Analyzer 0 % (0-5); Neutrophil # 3.02 X10^3/uL (2.7-7.7); Neutrophil % 43.6 % (47-70); POSITIVE MORPHOLOGY YES; Platelet Count 427 K/mm3 (150-450); RBC Distribution Width SD 42.9 fl (35.1-43.9); Red Blood Count 4.81 M/mm3 (4.2-5.4); White Blood Count 6.9 K/mm3 (4.4-11.0)
[2024-08-12 13:18] LABS: Vitamin D,25 Hydroxy 83.3 ng/mL
[2024-08-12 13:43] LABS: Differential Indicated SCAN CRITERIA MET
[2024-08-12 13:44] LABS: Differential Comment SCANNED
[2024-08-12 14:38] LABS: ALB/GLOB Ratio 0.8 RATIO (0.9-2.4); AST(SGOT) 29 U/L (15-37); Alanine Aminotransfer ALT/SGPT 32 U/L (13-56); Albumin, Serum 3.6 g/dL (3.2-5.0); Alkaline Phosphatase 89 U/L (45-117); Anion Gap 9 (5-15); BUN 19 mg/dL (7-18); BUN/Creat Ratio 18.4 RATIO (10-20); Calcium,Total 9.8 mg/dL (8.5-10.1); Chloride 102 mmol/L (98-107); Creatinine, Serum 1.03 mg/dL (0.55-1.02); EST Glomerular Filtration Rate 57 mL/min (>60); Est Glom Filt Rate - Afr Amer 69 mL/min (>60); Globulin 4.6 g/dL (2.2-4.2); Glucose 103 mg/dL (74-106); Potassium 3.9 mmol/L (3.5-5.1); Protein, Total 8.2 g/dL (6.4-8.2); Sodium Level 136 mmol/L (136-145)
== END | disposition home or self-care (01) ==
LOC: POLAB3 11:58
PROVIDERS: PCP Family Medicine Geriatric Medicine; Visit Provider Family Medicine Geriatric Medicine
DX: I10 Essential (primary) hypertension (principal); E55.9 Vitamin D deficiency, unspecified
CPT/HCPCS: 36415; 80053; 82306; 84443; 85025

== ENCOUNTER → 2025-02-23 | Outpatient (CLI) | payer OTHER, SELFPAY ==
[2025-02-23 10:25] LABS: Hematocrit 43.0 % (37-47); Hemoglobin 14.3 g/dL (12.0-15.0); Immature Granulocytes Count 0.130 X10^3/uL (0.0-0.0); Mean Corp Hgb Conc 33.3 g/dL (32-36); Mean Corpuscular Volume 91.9 fL (81-99); Mean Platelet Vol. 10.6 fl (6.2-12.0); NRBC Flagged by Analyzer 0 % (0-5); Platelet Count 354 K/mm3 (150-450); RBC Distribution Width CV 13.0 % (11.6-14.6); RBC Distribution Width SD 43.7 fl (35.1-43.9); Red Blood Count 4.68 M/mm3 (4.2-5.4); White Blood Count 11.1 K/mm3 (4.4-11.0)
[2025-02-23 11:24] LABS: AST(SGOT) 26 U/L (<=31); Alanine Aminotransfer ALT/SGPT 24 U/L (<=34); Albumin, Serum 4.2 g/dL (3.4-4.8); Alkaline Phosphatase 90 U/L (35-104); Anion Gap 12 (5-15); BUN 17 mg/dL (4-19); BUN/Creat Ratio 19.2 RATIO (10-20); Calcium,Total 9.6 mg/dL (7.6-11.0); Carbon Dioxide 25.2 mmol/L (21.0-32.0); Chloride 102 mmol/L (98-108); Globulin 3.5 g/dL (2.2-4.2); Glucose 172 mg/dL (70-99); Potassium 4.1 mmol/L (3.3-5.1); Vitamin D,25 Hydroxy 55.0 ng/mL (30-100)
[2025-02-23 18:10] LABS: Xtra Tube EP Lab EXTRA TUBE
== END | disposition home or self-care (01) ==
LOC: POLAB3 10:10
PROVIDERS: PCP Family Medicine Geriatric Medicine; Visit Provider Family Medicine Geriatric Medicine
DX: I10 Essential (primary) hypertension (principal); E55.9 Vitamin D deficiency, unspecified
CPT/HCPCS: 36415; 80053; 82306; 84443; 85025